=== PATIENT | male | born 1995 | race Caucasian/White ===

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

== ENCOUNTER 2017-07-09 16:16 | Emergency (ER) | payer MEDICAID ==
[2017-07-09 16:22] VITALS: BP 114/88; PULSE 98; RESP 16; TEMP 98.2; O2SAT 97
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
== END 2017-07-09 17:14 | disposition home or self-care (01) ==
DX: S92.144A Nondisplaced dome fracture of right talus, initial encounter for closed fracture (principal); J45.909 Unspecified asthma, uncomplicated; F17.200 Nicotine dependence, unspecified, uncomplicated; X58.XXXA Exposure to other specified factors, initial encounter

== ENCOUNTER 2017-08-25 09:11 | Emergency (ER) | payer MEDICAID ==
[2017-08-25 09:21] VITALS: O2SAT 96
[2017-08-25] MEDS ORDERED: LORazepam 1 MG TAB PO ONE ×3 (10:05→23:41)
[2017-08-25 10:10] LABS: PLATELET COUNT 224 10^3/uL (150-400)
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
[2017-08-25 16:29] VITALS: RESP 16
[2017-08-25 23:46] VITALS: TEMP 98.1
[2017-08-26] MEDS ORDERED: LORazepam 1 MG TAB ONE (00:09)
[2017-08-26 00:28] VITALS: BP 119/68; PULSE 73
== END 2017-08-26 00:27 | disposition home or self-care (01) ==
DX: F20.9 Schizophrenia, unspecified (principal); F17.200 Nicotine dependence, unspecified, uncomplicated
CPT/HCPCS: 80305; G0480

== ENCOUNTER 2018-07-21 10:24 | Emergency (ER) | payer MEDICAID ==
--- NOTE | 2018-07-21 10:47 | EDPHY ---
H & P Stated Complaint: bladder pain/painful urination Time Seen by Provider: 07/21/18 10:47 - Personal History Current Tetanus Diphtheria and Acellular Pertussis (TDAP): Unsure Tetanus Vaccine Date: < 10 years - Medical/Surgical History Hx Asthma: Yes Hx Chronic Respiratory Disease: No Hx Diabetes: No Hx Cardiac Disease: No Hx Renal Disease: No Hx Cirrhosis: No Hx Alcoholism: No Hx HIV/AIDS: No Hx Splenectomy or Spleen Trauma: No Other PMH: ADHD, bipolar, asthma, skizophrenia. L thumb surgery, R knee surgery - Social History Smoking Status: Heavy smoker Constitutional: Initial Vital Signs Temperature (C) 36.7 C 07/21/18 10:38 Heart Rate 104 H 07/21/18 10:38 Respiratory Rate 16 07/21/18 10:38 Blood Pressure 114/72 07/21/18 10:38 O2 Sat (%) 99 07/21/18 10:38 O2 Delivery Mode Room Air Allergies/Adverse Reactions: venom-honey bee [bee venom (honey bee)] Allergy (Verified 07/21/18 10:37) Home Medications: Medication Instructions Recorded Doxycycline Hyclate 100 mg PO BID #20 tablet 07/21/18 Medical Decision Making ED Course/Re-evaluation: CHIEF COMPLAINT: "I'm trying to get my infection out of my bladder" HISTORY OF PRESENT ILLNESS: The patient is a 22 y/o male with a history of bipolar disorder and schizophrenia complaining of dysuria for the last few weeks. He says he tested positive for "an infection," but is unable to provide details on when or how he was tested and what the results were. He treated this infection with cranberry juice and states, "I did the [place] treatment not the doctor treatment." He denies fever, back pain, vomiting, abdominal pain. He denies recent unprotected sex. REVIEW OF SYSTEMS: A comprehensive 10 system review of systems is otherwise negative aside from elements mentioned in the history of present illness and medical decision making. PHYSICAL EXAM: HR, BP, O2 Sat, RR. Temp noted General Appearance: Alert, well hydrated, appropriate, and non-toxic appearing. Head: Atraumatic without scalp tenderness or obvious injury Eyes: Pupils equal, round, reactive to light and accommodation, EOMI, no trauma , no injection. Nose: Atraumatic, no rhinorrhea, clear. Throat: Mucus membranes moist. Neck: Supple, nontender, no lymphadenopathy. Respiratory: No retractions, no distress, no wheezes, and no accessory muscle use. Lungs are clear to auscultation bilaterally. Cardiovascular: Regular rate and rhythm, no murmurs, rubs, or gallops. Good capillary refill all extremities. Gastrointestinal: Abdomen is soft, nontender, non-distended, no masses, no rebound, no guarding, no peritoneal signs. Musculoskeletal: Normal active ROM of all extremities, atraumatic. Neurological: Alert, appropriate, and interactive. The patient has non-focal cranial nerves, motor, sensory, and cerebellar exam. Skin: No rashes, good turgor, no nodules on palpation. Past medical history: ADHD, bipolar, asthma, schizophrenia Past surgical history: L thumb surgery, R knee surgery Family history: Noncontributory Social history: Marijuana use. Lives in [place]. Single. DIFFERENTIAL DIAGNOSIS: The differential diagnosis for the patient's symptoms included but was not limited to infection, medication side effect, neurologic causes, kidney stone, outflow obstruction including prostatic hypertrophy. MEDICAL DECISION MAKING: This is a 22 y/o male who presents with a few-week history of dysuria he has been treating as an infection with cranberry juice. Exam is unremarkable. Suspect infection. Plan for UA with GC/Chlamydia. UA is normal. GC has not resulted yet. Will treat with 250mg IM ceftriaxone here and discharge on 10-day course of doxycycline. Standard STD care and follow up instructions discussed. Return precautions discussed. He is comfortable with this plan. - Data Points Laboratory Results: 07/21/18 07/21/18 Unknown 10:55 Urine Color YELLOW Urine Appearance CLEAR Urine pH 5.0 (5.0-7.5) Ur Specific [place] 1.018 (1.002-1.030) Urine Protein NEGATIVE (NEGATIVE) Urine Ketones NEGATIVE (NEGATIVE) Urine Blood NEGATIVE (NEGATIVE) Urine Nitrate NEGATIVE (NEGATIVE) Urine Bilirubin NEGATIVE (NEGATIVE) Urine Urobilinogen NEGATIVE EU EU (0.2-1.0) Ur Leukocyte Esterase NEGATIVE (NEGATIVE) Urine RBC 1-3 /hpf /hpf (0-3) Urine WBC 1-3 /hpf /hpf (0-3) Ur Epithelial Cells NONE SEEN /lpf /lpf (NONE-1+) Urine Mucus TRACE /lpf /lpf (NONE-1+) Urine Glucose NEGATIVE (NEGATIVE) C.trachomatis RNA (TMA) Pending N.gonorrhoeae RNA (TMA) Pending Departure - Departure Disposition: Home, Routine, Self-Care Clinical Impression: STD (male) Condition: Good Instructions: Sexually Transmitted Diseases (ED) Additional Instructions: 1. Take doxycycline as prescribed. Be sure to complete the entire prescription. 2. Avoid sexual contact until completing prescription to prevent spread of infection to others. Use condoms. 3. Follow up with your primary care provider as directed for unimproved symptoms over the next 2-3 days. 4. Return to the ED for worsening of condition. Referrals: Salas Carrion MD [Primary Care Provider] - As per Instructions Prescriptions: Doxycycline Hyclate 100 mg PO BID #20 tablet Report Scribed for: Neftali Stokes Report Scribed by: Julianne Terry Date of Report: 07/21/18 Time of Report: 10:49
[2018-07-21] MEDS ORDERED: DOXYCYCLINE HYCLATE 100 MG CAP/TAB PO ONE (12:39)
[2018-07-21 13:28] VITALS: BP 110/87
[2018-07-22 12:11] LABS: GC AMPLIFICATION GENPROBE NEGATIVE (NEGATIVE)
== END 2018-07-21 13:29 | disposition home or self-care (01) ==
DX: A64 Unspecified sexually transmitted disease (principal)
CPT/HCPCS: J0696

== ENCOUNTER 2018-08-01 17:38 | Inpatient (IN) | payer MEDICAID, OTHER ==
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
[2018-08-01 18:16] LABS: PLATELET COUNT 274 10^3/uL (150-400)
[2018-08-01] MEDS ORDERED: OLANZapine DISINTEGR 10 MG TAB ONE (21:35)
[2018-08-01] MEDS ORDERED: LORazepam 1 MG TAB ONE (21:36)
--- NOTE | 2018-08-01 21:38 | ASMTTCLDSP ---
[facility] Discharge Disposition Disposition: Answers: Admit Discharge Concerns/Recommendations: Notes: In consultation with [facility] ED physician, Hilary Kendrick MD and on-call psychiatrist, Manolo Holley MD, both concurred that pt appears to meet 27-65 criteria requiring psychiatric hospitalization as pt appears to be at risk of harm to others due to a mental illness condition. Pt was read the Patient Rights and Responsibilities Statement on (08/01/2018:21:00), original placed on chart, and was given photocopy of Rights. Pt declined to sign the Patient Rights. Pt was given the [facility] prohibited belongings list while in the ED. Was patient given the Answers: Yes Inpatient Behavioral Health Prohibited Belongings List while in the ED? For inpatient Manolo Holley MD admission, the following psychiatrist agreed to accept patient for admission to Behavioral Health ([facility]): Date Signed: 08/01/2018 09:38 PM Electronically Signed By:Rowan Juarez
[2018-08-01] MEDS ORDERED: LORazepam 1 MG TAB PO ONE (21:56)
[2018-08-01] MEDS ORDERED: OLANZapine DISINTEGR 10 MG TAB PO ONE (21:57)
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
[2018-08-02] MEDS ORDERED: OLANZapine DISINTEGR 10 MG TAB PO PRN (00:19)
[2018-08-02] MEDS ORDERED: MAG HYDROX/AL HYDROX/SIMETH 30 ML UDCUP PO PRN (00:19)
[2018-08-02] MEDS ORDERED: MAGNESIUM HYDROXIDE 30 ML UDCUP PO PRN (00:19)
[2018-08-02] MEDS ORDERED: ACETAMINOPHEN 325 MG TAB PO PRN (00:19)
[2018-08-02] MEDS ORDERED: LORazepam 0.5 MG TAB PO PRN (00:19)
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
--- NOTE | 2018-08-02 09:48 | PDMN ---
Medical Necessity Medical [place] [facility] [id number] Schizophrenia Spectrum Disorders, Adult: Inpatient Care, 6 days: 22 yo w/ schizophrenia on M1 hold for risk of harm to others. Admit IP status to BEH unit.
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
--- NOTE | 2018-08-02 12:51 | ASMTCMCOM ---
CM Note CM Note Notes: CC met with pt to complete MTP. Pt. denies any current legal issues. Pt. reports drinking "few beers" adding he "tried to cut back", stating "received a calling from God and said not to drink". Pt. reports smoking THC "everyday". Pt. denied all other substance use. Pt. reports being last hospitalized "few months ago" but was not able to remember where. Pt. reports not currently having a job. Pt. reports working with Diana Silva with [facility]. Pt. signed ROIs for P and his mother. Pt. was observed yelling to someone on the phone. Pt. presents as alert, a bit guarded, good eye contact, possibly slightly delusional, and cooperative. Staff report pt. sleeping at least 10 hours and willing to take medications. Date Signed: 08/02/2018 12:50 PM Electronically Signed By:Maria C Minor
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
--- NOTE | 2018-08-02 15:31 | ASMTCMCOM ---
CM Note CM Note Notes: Pt. reports "want to leave" and feeling "cold and tired". Pt. reports sleeping "okay". Pt. reports she "feel fine". Pt. stated she "doesn't like taking it" about her medications. Pt. reports her medication "making me tired". Pt. stated she "went to all" of the groups. Pt. reports no issues while on the unit. Pt. stated her mother could pick her up st discharge. Pt. stated she can make it to her follow up appointments. Pt. asked CC to change the time of her appointment with Cora from 9am to 1pm. Pt. stated she does not want to be on a STC. Pt. denied SI, HI, AVH and paranoia. Pt. presents as alert, calm, guarded, suspicious, good eye contact, unkempt, and cooperative. Staff report pt. sleeping 9 hours and being medication compliant. Per MD CC to move appointment with Dr. Noel to a later date. Date Signed: 08/02/2018 03:30 PM Electronically Signed By:Maria C Minor
--- NOTE | 2018-08-02 15:32 | ASMTCMCOM ---
CM Note CM Note Notes: Please disregard previous treatment note dated 08/02/18 at 15:31, written on wrong patient. Date Signed: 08/02/2018 03:32 PM Electronically Signed By:Maria C Minor
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
[2018-08-03] MEDS: OLANZapine DISINTEGR 10 MG TAB PO PRN (14:18)
[2018-08-03] MEDS: LORazepam 0.5 MG TAB PO PRN ×2 (14:18→21:24)
[2018-08-04] MEDS: OLANZapine DISINTEGR 10 MG TAB PO PRN ×2 (11:28→14:48)
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
[2018-08-04 12:01] LABS: HEPATITIS B CORE AB IGM NEGATIVE (NEGATIVE); HEPATITIS C ANTIBODY TOTAL NEGATIVE (NEGATIVE); HIV TYPE 1 AND 2 NEGATIVE (NEGATIVE)
[2018-08-04] MEDS: LORazepam 1 MG TAB PO PRN (13:27)
--- NOTE | 2018-08-04 13:47 | ASMTCMCOM ---
CM Note CM Note Notes: CC spoke to hospital liaison & MOC Spoke to Susan at [facility] who noted the following regarding Meir Q. Medications: Client was last on 20mg of Zyprexa QHS, Gabapentin 300mg BID as of . Before that visit client was on: Risperdal 1mg & Propranolol 20mg. She noted that client have had at least three prior hospitalizations, one prior suicide attempt with diagnosis with Schizoaffective Disorder, Bipolar Type. Additionally, she noted that client presented as responding to internal stimuli (during last hospitalization) as well as client divulging experiencing auditory hallucinations (nothing specific). Was on suspended probation for having two DUI's during last hospitalization. Presents as having "thought blocking, thought derailment and vacancy at times." Per liaison after two weeks at [facility], client still presented at the time as "disorganized, paranoid and bizarre. " Per conversation with MOC today: Mother noted " [the] state highway police officer that knows him well," would like him to get the mental health treatment that he needs instead of spending that time in the long-term. MOC is unsure, if the Police are going to charge him with a crime or not; MOC will check into this later today. MOC would like client go to residential treatment after his hospital stay or an IOP at the least.* MOC noted, that client has been non compliant with medications in the past, and would like client to be stabilized on medications before the conversation of possibility returning home (starts). Additionally, MOC noted that Zyprexa "might not be the best medication for him because his sister got a 'genetic test completed,' and it suggested Zyprexa was not the best medication for her...they are bother and sister and [I] wonder if the same would apply for him." MOC will be check her schedule and call me back for a possible family meeting on or Friday. Date Signed: 08/04/2018 01:47 PM Electronically Signed By:Chris Blanco
[2018-08-04] MEDS ORDERED: LORazepam 2 MG/ML INJ IM PRN (13:49)
[2018-08-04] MEDS ORDERED: OLANZapine 10 MG/2 ML VIAL IM PRN (13:49)
[2018-08-04] MEDS: OLANZapine DISINTEGR 10 MG TAB PO SCH (20:57)
--- NOTE | 2018-08-05 08:16 | SOAPPROG ---
SOAP Progress Note Assessment/Plan: Assessment: Substance-induced psychosis. R/O Schizophrenia, Schizoaffective Disorder. No improvement noted. (see subjective/objective note). Patient is not safe to discharge at this time as patient continues to exhibit signs of psychosis, and express psychosis symptoms. Patient requires continued inpatient care because of current psychosis, and requires inpatient level of care to stabilize in order to no longer be gravely disabled due to mental illness. Patient exhibits persistent inability to perform essential function due to psychotic condition. Patients support system has inability to manage functional impairment at lower level of care. Patient could benefit from continued inpatient hospitalization for crisis stabilization, safety, and medication evaluation. Plan: 1. Psychotropic medications: After reviewing options, risks, and benefits patient agrees to continue current medications. No medication changes at this time as more time is needed to determine ongoing tolerability and efficacy. Plan is to continue to observe patient for response and side effects from medications, and ongoing monitoring and evaluation. 2. Review with patient informed consent and recommendations for psychotropic medication treatment listed below 3. Labs: no additional labs at this time 4. Therapy: continue milieu and group therapy 5. Further investigation including gathering information from patients relatives and review of past case records to inform treatment plan. 6. Safety/Wellness plan and follow-up outpatient appointments to be established prior to discharge. Next steps are for patient to meet with animal care worker to plan a safe discharge plan and establish outpatient services for ongoing treatment. 7. Confer with inpatient treatment team regarding treatment plan. 8. Psychosocial stressors addressed through 9. Legal status: [facility] 10. Consider discharge next week if patient is in stable condition, safe, and has a safe discharge plan. 11. Substance abuse interventions: hallucinogens and THC PSYCHOTROPIC MEDICATION TREATMENT INFORMED CONSENT and RECOMMENDATIONS: Review nature of condition, diagnosis, and prognosis. Review nature and purpose of psychotropic medication treatment. Review type of psychotropic medications being ordered. Review risk and benefits of psychotropic medication treatment. Review probable length of time patient will need to take medications. Review risk and benefits of not undergoing psychotropic medication treatment. Review alternative treatments to psychotropic medications. Review psychotropic medications contraindications, drug-drug interactions, side effects, and importance of reporting any side effects to a psychiatric provider or nurse during inpatient hospitalization, and upon discharge to patients psychiatric outpatient provider, primary care provider, or other health restorative care technician. Review importance of asking a nurse, psychiatric provider, or primary care provider any questions or problems concerning the psychotropic medications. Verify patient understands the information that has been provided, and understands, accepts, and agrees to psychotropic medications. Review patients safety plan and importance of patient to report to staff while hospitalized if patient is ever a danger to self/others, or unable to care for self, and upon discharge, the importance for patient to contact [facility] or [facility], or go to the nearest emergency room, if patient is ever a danger to self/others, or unable to care for self. Recommend that upon discharge patient establish medication management treatment with a psychiatric provider, establishes routine therapy appointments, and follow-up with primary care provider. Verify patient understands and agrees to these recommendations. 08/05/18 08:16 Subjective: Following up with patient for evaluation of psychosis and safety. Patient reports, "I am doing good, just really, really tired. Tossed and turned a lot last night. [place] like my heart and my whole body was dying. Then I got up and took a shower. Oh, sorry, just noticed a bird fly by. Yes, anyway, doing okay. " Patient describes getting 8 hours of sleep. Patient continues to report plan to return to his parents home in [place], [place] after discharge. Objective: Vital Signs Temp Pulse Resp BP Pulse Ox 36.3 C 67 20 137/85 H 95 08/05/18 06:00 08/05/18 06:00 08/05/18 06:00 08/05/18 06:00 08/05/18 06:00 NURSING REPORT: Consulted with nursing for update on patients progress in treatment. Nurses report patient is not engaged in treatment, is not attending groups, slept 8 hours, expresses the following psychiatric symptoms: severe anxiety, exhibits the following psychiatric symptoms: anxious, disorganized speech and behavior, nonsensical, attending to internal stimuli; is eating all meals; is agreeable to schedule medications and taking as prescribed with no report of side effects, with no s/s of EPS/akathisia, and denies SI/HI, denies A /V hallucinations, and reports delusions. RN REPORT FROM 08/04/18: "Patient was given a warning about raising his voice while talking on the phone to his mother and claiming that his father was a shape shifter. Patient complied by lowering his voice and finished the phone call with no further interventions. Patient did request that this RN report to his mother that he is going to group and taking his medications. Patient was heard talking loudly and crying out in his room while alone. Patient stated while crying, " I am losing myself here. I can't communicate with myself in the same way. " Patient was observed talking with the patient in room 310 about buddhism, philosophy, reality and various other subjects. Much of their conversation was nonsensical and tangential but they did appear to be bonding and understanding one another. Patient took po Zyprexa at bedtime." CARE COORDINATION: Patient currently not allowed to return home to his parents after discharge. Plan for patient to follow-up at [facility] after discharge. MSE: The patient is a well-nourished male looking stated chronological age. Attire is appropriate and dress is casual. Grooming status is appropriate. Ambulation is independent. Gait is normal and coordinated. Posture is normal and relaxed. Eye contact is appropriate. Motor activity is appropriate with purposeful, organized, coordinated movements; with no involuntary movements. Attitude is cooperative. Patient appears distractible and does not relate well to this interviewer. Language production is spontaneous. R/R/V normal. Articulation is clear. Patient reports mood as okay with incongruent and inappropriate expansive affect. Patients thought process is non-linear and illogical, and tangential; patient provides nonsensical responses to interview questions. Patient denies suicidal thoughts, denies homicidal ideation. Patient denies auditory, visual hallucinations. Patient reports delusions. Patient does appear to be attending to internal stimuli. Patients attention and concentration are poor. Patient is oriented to person, place. Patients insight and judgment are poor. SUBSTANCE ABUSE BRIEF INTERVENTION: Brief intervention regarding the risks of hallucinogens and THC abuse is provided to patient with goal to reduce the risk of harm that could result from the continued use of hallucinogens and THC, with the general aim to investigate the problem, raise awareness of problem, develop a solution with the patient, recommend a specific change or activity, and motivate the patient toward change. Assess substance abuse behavior and give supportive advice about harm reduction, recommend a reduction in hazardous/at- risk consumption patterns, and facilitate referrals for additional specialized treatment with acute care surgeon. Intermediate goal is for the patient to quit and attend outpatient substance abuse treatment. Intervention focus on intermediate goals to allow for more immediate success in the treatment process to keep the patient motivated. Review following with patient: Cannabis use risks: Short-term use: impaired short-term memory, impaired motor coordination, altered judgement, in high doses paranoia and psychosis. Long-term use addiction, diminished life satisfaction and achievement, symptoms of chronic bronchitis, and increased risk of chronic psychosis disorders if predisposition to such disorders. In withdrawal anger, aggression irritability, anxiety and nervousness, decreased appetite or weight loss, restlessness, and sleep difficulties with strange dreams. Hallucinogen use risks: paranoia, psychosis, speech problems, memory loss, weight loss, anxiety, and depression and suicidal thoughts. OUTPATIENT SUBSTANCE ABUSE TREATMENT: Patient referred to outpatient provider and treatment for continued treatment related to substance abuse. - Time Spent With Patient Time Spent With Patient: 15 minutes, met with patient individually. - Pending Discharge Pending Discharge Within 24 Hours: No Pending Discharge Within 48 Hours: No ICD10 Worksheet Patient Problems: Problems Problem Status Onset Cannabis use disorder, severe, dependence Acute Hallucinogen use, unspecified with hallucinogen-induced psychotic disorder, unspecified Acute Noncompliance with medication regimen Acute Schizophrenia Acute
[2018-08-05] MEDS: LORazepam 1 MG TAB PO PRN ×2 (10:53→21:27)
[2018-08-05] MEDS ORDERED: LORazepam 2 MG/ML INJ IM PRN (15:40)
[2018-08-05] MEDS ORDERED: OLANZapine 10 MG/2 ML VIAL IM PRN (15:40)
[2018-08-05] MEDS: OLANZapine DISINTEGR 10 MG TAB PO SCH (21:23)
[2018-08-06 06:42] LABS: GC AMPLIFICATION GENPROBE NEGATIVE (NEGATIVE)
--- NOTE | 2018-08-06 07:04 | SOAPPROG ---
SOAP Progress Note Assessment/Plan: Assessment: Schizoaffective Disorder, Bipolar Type. Cannabis Use Disorder, Severe. Hallucinogen Use Disorder. Substance-Induced Psychosis. No improvement noted. (see subjective/objective note). Patient is not safe to discharge at this time as patient continues to exhibit signs of psychosis, and express psychosis symptoms. Patient requires continued inpatient care because of current psychosis, and requires inpatient level of care to stabilize in order to no longer be gravely disabled due to mental illness. Patient exhibits persistent inability to perform essential function due to psychotic condition. Patient is unable to test reality, appropriately attend to his ADLs, and unable to communicate his basic needs. Patients support system has inability to manage functional impairment at lower level of care. Patient could benefit from continued inpatient hospitalization for crisis stabilization, safety, and medication evaluation. Plan: 1. Psychotropic medications: After reviewing options, risks, and benefits patient agrees to continue current medications. No medication changes at this time as more time is needed to determine ongoing tolerability and efficacy. Plan is to continue to observe patient for response and side effects from medications, and ongoing monitoring and evaluation. 2. Review with patient informed consent and recommendations for psychotropic medication treatment listed below 3. Labs: no additional labs at this time 4. Therapy: continue milieu and group therapy 5. Further investigation including gathering information from patients relatives and review of past case records to inform treatment plan. 6. Safety/Wellness plan and follow-up outpatient appointments to be established prior to discharge. Next steps are for patient to meet with career representative to plan a safe discharge plan and establish outpatient services for ongoing treatment. 7. Confer with inpatient treatment team regarding treatment plan. 8. Psychosocial stressors addressed through 9. Legal status: [facility] 10. Consider discharge next week if patient is in stable condition, safe, and has a safe discharge plan. 11. Substance abuse interventions: hallucinogens and THC PSYCHOTROPIC MEDICATION TREATMENT INFORMED CONSENT and RECOMMENDATIONS: Review nature of condition, diagnosis, and prognosis. Review nature and purpose of psychotropic medication treatment. Review type of psychotropic medications being ordered. Review risk and benefits of psychotropic medication treatment. Review probable length of time patient will need to take medications. Review risk and benefits of not undergoing psychotropic medication treatment. Review alternative treatments to psychotropic medications. Review psychotropic medications contraindications, drug-drug interactions, side effects, and importance of reporting any side effects to a psychiatric provider or nurse during inpatient hospitalization, and upon discharge to patients psychiatric outpatient provider, primary care provider, or other health neonatal intensive care unit nurse. Review importance of asking a nurse, psychiatric provider, or primary care provider any questions or problems concerning the psychotropic medications. Verify patient understands the information that has been provided, and understands, accepts, and agrees to psychotropic medications. Review patients safety plan and importance of patient to report to staff while hospitalized if patient is ever a danger to self/others, or unable to care for self, and upon discharge, the importance for patient to contact [facility] or [facility], or go to the nearest emergency room, if patient is ever a danger to self/others, or unable to care for self. Recommend that upon discharge patient establish medication management treatment with a psychiatric provider, establishes routine therapy appointments, and follow-up with primary care provider. Verify patient understands and agrees to these recommendations. 08/06/18 07:04 Subjective: Following up with patient for evaluation of psychosis and safety. Patient reports, "I feel better, the medication is working. Would like to speak to someone today about my discharge." Patient reports feeling safe here. Patient describes getting 8 hours of sleep. Patient continues to report plan to return to his parents home in [place], [place] after discharge. Patient reports no side effects from current medications, and agrees to continue current medications. Objective: Vital Signs Temp Pulse Resp BP Pulse Ox 36.3 C 89 16 143/87 H 96 08/05/18 06:00 08/06/18 06:00 08/06/18 06:00 08/06/18 06:00 08/06/18 06:00 NURSING REPORT: Consulted with nursing for update on patients progress in treatment. Nurses report patient is not engaged in treatment, is not attending groups, slept 8 hours, expresses the following psychiatric symptoms: severe anxiety, exhibits the following psychiatric symptoms: anxious, irritable/ agitated, disorganized speech and behavior, nonsensical; is eating all meals; is agreeable to schedule medications and taking as prescribed with no report of side effects, with no s/s of EPS/akathisia, and denies SI/HI, denies A/V hallucinations, and reports delusions. RN REPORT FROM 08/05/18: Patient took Zyprexa zydis and Ativan 1mg with thorough mouth check. He stated that the Zyprexa made him "wake up and feel like there were tiny sharp knives stabbing every pressure point in my body" usually around 0200. Patient asked whether or not Ativan would be available to him. RN assured him it was available every 4 hours. This day shift, patient requested an Ativan from RN Sessions, and proceeded to throw it under the chair after trying to cheek it. Patient was very dramatic and silly at various points tonight on the milieu, jumping, dancing around. He was "whacking" his socks on his the heating vent, very loudly. Patient apologized for being loud. CARE COORDINATION: Patient currently not allowed to return home to his parents after discharge. Plan for patient to follow-up at [facility] after discharge. BEHAVIORAL PLAN: Treatment team consensus to continue current plan to support precautions due to patients current acute psychosis. Will confer with treatment team this morning during treatment team meeting to assess need to continue this plan. FAMILY MEETING/UPDATE: This BUYER TOBACCO HEAD spoke to patients mother (EMILY in chart) yesterday to provide patients mother with treatment update and gather collateral from patients mother. Patients mother reported, "He thinks he is Thor and his dad is , and describes his dad as not really his dad, but a shape-shifter." Patients mother responded well to update and thanked this BUYER TOBACCO HEAD for the call. MSE: The patient is a well-nourished male looking stated chronological age. Attire is appropriate and dress is casual. Grooming status is appropriate. Ambulation is independent. Gait is normal and coordinated. Posture is normal and relaxed. Eye contact is appropriate. Motor activity is appropriate with purposeful, organized, coordinated movements; with no involuntary movements. Attitude is cooperative. Patient appears distractible and does not relate well to this interviewer. Language production is spontaneous. R/R/V normal. Articulation is clear. Patient reports mood as okay with incongruent and inappropriate expansive affect. Patients thought process is non-linear and illogical, and tangential; patient provides non-sensical and delusional responses to interview questions. Patient denies suicidal thoughts, denies homicidal ideation. Patient denies auditory, visual hallucinations. Patient reports delusions. Patient does not appear to be attending to internal stimuli. Patients attention and concentration are poor. Patient is oriented to person, place. Patients insight and judgment are poor. SUBSTANCE ABUSE BRIEF INTERVENTION: Brief intervention regarding the risks of hallucinogens and THC abuse is provided to patient with goal to reduce the risk of harm that could result from the continued use of hallucinogens and THC, with the general aim to investigate the problem, raise awareness of problem, develop a solution with the patient, recommend a specific change or activity, and motivate the patient toward change. Assess substance abuse behavior and give supportive advice about harm reduction, recommend a reduction in hazardous/at- risk consumption patterns, and facilitate referrals for additional specialized treatment with rn coronary care unit. Intermediate goal is for the patient to quit and attend outpatient substance abuse treatment. Intervention focus on intermediate goals to allow for more immediate success in the treatment process to keep the patient motivated. Review following with patient: Cannabis use risks: Short-term use: impaired short-term memory, impaired motor coordination, altered judgement, in high doses paranoia and psychosis. Long-term use addiction, diminished life satisfaction and achievement, symptoms of chronic bronchitis, and increased risk of chronic psychosis disorders if predisposition to such disorders. In withdrawal anger, aggression irritability, anxiety and nervousness, decreased appetite or weight loss, restlessness, and sleep difficulties with strange dreams. Hallucinogen use risks: paranoia, psychosis, speech problems, memory loss, weight loss, anxiety, and depression and suicidal thoughts. OUTPATIENT SUBSTANCE ABUSE TREATMENT: Patient referred to outpatient provider and treatment for continued treatment related to substance abuse. - Time Spent With Patient Time Spent With Patient: 15 minutes, met with patient individually. - Pending Discharge Pending Discharge Within 24 Hours: No Pending Discharge Within 48 Hours: No ICD10 Worksheet Patient Problems: Problems Problem Status Onset Cannabis use disorder, severe, dependence Acute Hallucinogen use, unspecified with hallucinogen-induced psychotic disorder, unspecified Acute Noncompliance with medication regimen Acute Unspecified psychosis Acute
[2018-08-06] MEDS: LORazepam 1 MG TAB PO PRN ×2 (13:25→23:14)
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
[2018-08-06] MEDS: OLANZapine DISINTEGR 10 MG TAB PO SCH (21:10)
--- NOTE | 2018-08-07 08:37 | SOAPPROG ---
SOAP Progress Note Assessment/Plan: Assessment: Schizoaffective Disorder, Bipolar Type. Cannabis Use Disorder, Severe. Hallucinogen Use Disorder. Substance-Induced Psychosis. No improvement noted. (see subjective/objective note). Patient is not safe to discharge at this time as patient continues to exhibit signs of psychosis, and express psychosis symptoms. Patient requires continued inpatient care because of current psychosis, and requires inpatient level of care to stabilize in order to no longer be gravely disabled due to mental illness. Patient exhibits persistent inability to perform essential function due to psychotic condition. Patient is unable to test reality, appropriately attend to his ADLs, and unable to communicate his basic needs. Patients support system has inability to manage functional impairment at lower level of care. Patient could benefit from continued inpatient hospitalization for crisis stabilization, safety, and medication evaluation. Plan: 1. Psychotropic medications: After reviewing options, risks, and benefits patient agrees to continue current medications. No medication changes at this time as more time is needed to determine ongoing tolerability and efficacy. Plan is to continue to observe patient for response and side effects from medications, and ongoing monitoring and evaluation. 2. Review with patient informed consent and recommendations for psychotropic medication treatment listed below 3. Labs: no additional labs at this time 4. Therapy: continue milieu and group therapy 5. Further investigation including gathering information from patients relatives and review of past case records to inform treatment plan. 6. Safety/Wellness plan and follow-up outpatient appointments to be established prior to discharge. Next steps are for patient to meet with care asst to plan a safe discharge plan and establish outpatient services for ongoing treatment. 7. Confer with inpatient treatment team regarding treatment plan. 8. Psychosocial stressors addressed through 9. Legal status: [facility] 10. Consider discharge next week if patient is in stable condition, safe, and has a safe discharge plan. 11. Substance abuse interventions: hallucinogens and THC PSYCHOTROPIC MEDICATION TREATMENT INFORMED CONSENT and RECOMMENDATIONS: Review nature of condition, diagnosis, and prognosis. Review nature and purpose of psychotropic medication treatment. Review type of psychotropic medications being ordered. Review risk and benefits of psychotropic medication treatment. Review probable length of time patient will need to take medications. Review risk and benefits of not undergoing psychotropic medication treatment. Review alternative treatments to psychotropic medications. Review psychotropic medications contraindications, drug-drug interactions, side effects, and importance of reporting any side effects to a psychiatric provider or nurse during inpatient hospitalization, and upon discharge to patients psychiatric outpatient provider, primary care provider, or other health care process manager. Review importance of asking a nurse, psychiatric provider, or primary care provider any questions or problems concerning the psychotropic medications. Verify patient understands the information that has been provided, and understands, accepts, and agrees to psychotropic medications. Review patients safety plan and importance of patient to report to staff while hospitalized if patient is ever a danger to self/others, or unable to care for self, and upon discharge, the importance for patient to contact [facility] or [facility], or go to the nearest emergency room, if patient is ever a danger to self/others, or unable to care for self. Recommend that upon discharge patient establish medication management treatment with a psychiatric provider, establishes routine therapy appointments, and follow-up with primary care provider. Verify patient understands and agrees to these recommendations. 08/07/18 08:37 Subjective: Following up with patient for evaluation of psychosis and safety. Patient reports, "I took medications last night, good sleep last night." Patient describes getting 8 hours of sleep. Patient reports no side effects from current medications, and agrees to continue current medications. Patient reports plan to stay with one of his friends house after discharge. This RAILROAD YARD WORKER asks patient about report from staff he walked out of his room naked yesterday afternoon patient reports, "Oh, I was just walking out to get a towel." Patient reports he will no longer will leave his room naked and appropriately ask staff for a towel. Objective: Vital Signs Temp Pulse Resp BP Pulse Ox 36.3 C 58 L 16 117/84 H 99 08/07/18 06:00 08/07/18 06:00 08/07/18 06:00 08/07/18 06:00 08/07/18 06:00 NURSING REPORT: Consulted with nursing for update on patients progress in treatment. Nurses report patient is not engaged in treatment, is not attending groups, slept 8 hours, expresses the following psychiatric symptoms: severe anxiety, exhibits the following psychiatric symptoms: anxious, irritable/ agitated, disorganized speech and behavior, nonsensical; is eating all meals; is agreeable to schedule medications and taking as prescribed with no report of side effects, with no s/s of EPS/akathisia, and denies SI/HI, denies A/V hallucinations, and reports delusions. CARE COORDINATION: Patient currently not allowed to return home to his parents after discharge. Plan for patient to follow-up at [facility] after discharge. BEHAVIORAL PLAN: Treatment team consensus to continue current plan to support precautions due to patients current acute psychosis. See update/edit from progress note, patient walked out of his room naked. Will confer with treatment team this morning during treatment team meeting to assess need to continue this plan. MSE: The patient is a well-nourished male looking stated chronological age. Attire is appropriate and dress is casual. Grooming status is appropriate. Ambulation is independent. Gait is normal and coordinated. Posture is normal and relaxed. Eye contact is appropriate. Motor activity is appropriate with purposeful, organized, coordinated movements; with no involuntary movements. Attitude is cooperative. Patient appears distractible and does not relate well to this interviewer. Language production is spontaneous. R/R/V normal. Articulation is clear. Patient reports mood as okay with incongruent and inappropriate expansive affect. Patients thought process is non-linear and illogical, and tangential; patient provides non-sensical and delusional responses to interview questions. Patient denies suicidal thoughts, denies homicidal ideation. Patient denies auditory, visual hallucinations. Patient reports delusions. Patient does not appear to be attending to internal stimuli. Patients attention and concentration are poor. Patient is oriented to person, place. Patients insight and judgment are poor. SUBSTANCE ABUSE BRIEF INTERVENTION: Brief intervention regarding the risks of hallucinogens and THC abuse is provided to patient with goal to reduce the risk of harm that could result from the continued use of hallucinogens and THC, with the general aim to investigate the problem, raise awareness of problem, develop a solution with the patient, recommend a specific change or activity, and motivate the patient toward change. Assess substance abuse behavior and give supportive advice about harm reduction, recommend a reduction in hazardous/at- risk consumption patterns, and facilitate referrals for additional specialized treatment with direct care counselor. Intermediate goal is for the patient to quit and attend outpatient substance abuse treatment. Intervention focus on intermediate goals to allow for more immediate success in the treatment process to keep the patient motivated. Review following with patient: Cannabis use risks: Short-term use: impaired short-term memory, impaired motor coordination, altered judgement, in high doses paranoia and psychosis. Long-term use addiction, diminished life satisfaction and achievement, symptoms of chronic bronchitis, and increased risk of chronic psychosis disorders if predisposition to such disorders. In withdrawal anger, aggression irritability, anxiety and nervousness, decreased appetite or weight loss, restlessness, and sleep difficulties with strange dreams. Hallucinogen use risks: paranoia, psychosis, speech problems, memory loss, weight loss, anxiety, and depression and suicidal thoughts. OUTPATIENT SUBSTANCE ABUSE TREATMENT: Patient referred to outpatient provider and treatment for continued treatment related to substance abuse. - Time Spent With Patient Time Spent With Patient: 15 minutes, met with patient individually. - Pending Discharge Pending Discharge Within 24 Hours: No Pending Discharge Within 48 Hours: No ICD10 Worksheet Patient Problems: Problems Problem Status Onset Cannabis use disorder, severe, dependence Acute Hallucinogen use, unspecified with hallucinogen-induced psychotic disorder, unspecified Acute Schizoaffective disorder, bipolar type Chronic
[2018-08-07] MEDS: LORazepam 1 MG TAB PO PRN ×2 (11:24→20:30)
--- NOTE | 2018-08-07 14:19 | ASMTCMCOM ---
CM Note CM Note Notes: Pt. reports "doing great". Pt. reports just finishing a meeting with his insulator tester. Pt. reports he "tossed and turned" and reports "never feel rested" adding he normally sleeps between 6-8 hours. Pr. reports "been getting a lot to eat" and is attending groups. Pt. reports he never feels full. Pt. reports "they help me a lot" about his medications. Pt. reports ativan helps with the side effects of the Zyprexa. Pt. reports his medications doing "wonders". Pt. struggled to remember he had a meeting with PNP today. Pt. reports he will be discharging on Friday "possibly". Pt. denied SI, HI, AVH and paranoia. Pt. presents as alert, calm, friendly, good eye contact, and cooperative. Staff report pt. sleeping 6.5 hours and being medication compliant. Staff report pt. coming out of his room naked last evening, but was redirectable. CC to continue working of pt's housing plans upon discharge. Date Signed: 08/07/2018 02:18 PM Electronically Signed By:Maria C Minor
[2018-08-07] MEDS: OLANZapine DISINTEGR 10 MG TAB PO SCH (20:14)
--- NOTE | 2018-08-08 15:20 | ASMTCMCOM ---
CM Note CM Note Notes: Pt. reports "could be doing better, could be doing worse" adding he is feeling "neutral". Pt. reports he slept "amazingly, really good sleep" adding he possibly slept better due to being "more relaxed" before bed. Pt. reports wanting to ask the MD about getting double portions with his meals. Pt. stated sometimes the Zyprexa wakes him up at night, due to pain in "pressure points" on his back. Pt. reports "Zyprexa really helps with hallucinations". Pt. stated not liking when the TV "is crackly" and there are "color lines through one channel". CC asked about pt's substance use, pt. asked if our discussion with stay in the hospital. Pt. stated he plans to move to [place] where shrooms are legal. Pt. denied SI, HI, AVH and paranoia. Pt. presents as alert, calm, fair eye contact, somewhat groomed, a bit guarded and cooperative. Staff report pt. sleeping 9 hours and being medication compliant. CC to reach out to [facility] to secure a follow up appointment with a prescriber. Pt. has an appointment with Diana Silva on3.29 at 10am. Date Signed: 08/08/2018 03:18 PM Electronically Signed By:Maria C Minor
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
[2018-08-08] MEDS: OLANZapine DISINTEGR 10 MG TAB PO SCH (21:50)
[2018-08-08] MEDS: LORazepam 1 MG TAB PO PRN (21:53)
[2018-08-09] MEDS: OLANZapine DISINTEGR 10 MG TAB PO PRN (12:41)
[2018-08-09] MEDS: LORazepam 1 MG TAB PO PRN ×2 (12:41→21:06)
[2018-08-09] MEDS: NICOTINE POLACRILEX 2 MG GUM B PRN (13:33)
--- NOTE | 2018-08-09 16:11 | ASMTCMCOM ---
CM Note CM Note Notes: Pt. reports "need some fresh air, I'm dying". Pt. stated he is "having schizophrenic thoughts". Pt. stated he is keeping busy by reading a book on shadow puppets, watching TV and "playing brain games with my mind". Pt. reports feeling "very aggravated, very, very aggravated". Pt. stated "I'm a being of nature". Pt. stated "this hospital environment is not helping with my schizophrenia", adding his "ADHD bounces off my schizophrenia". Pt. reports sleeping "okay, pretty good sleep". Pt. reports his medications are "helping" and he is having "no side effects". Pt. stated his meals were double, adding he "feel closer to being full". Pt. reports attending groups. Pt. stated he is "worried about my discharge" adding he believes he will discharge on Friday. Pt. stated he is "worried about not being able to get out of here". Pt. stated he plans to return to [place], and will live with his parents, or his friend Tayo, or his friend Santana in [place]. Pt. stated he is able to get to his follow up appointments in [place], adding he has an eco pass. Pt. stated he is able to fill and take his medications as prescribed. Pt. denied SI, HI, AVH and paranoia. Pt. requested AG. Pt. presents as alert, fidgety intermittent eye contact, lacking insight, rambling, and somewhat cooperative. Staff report pt. sleeping 6 hours and being medication compliant. Pt. was placed on a restriction of rights of 10 feet from all females, allowed only in the [facility], and must meet with visitors in common areas. Upon being informed of this restriction, pt. began slamming doors and refused to accept the restriction. CC to reach out to [facility] about potential housing options for pt. CC to reach out to [facility] for an appointment with a prescriber. Date Signed: 08/09/2018 04:10 PM Electronically Signed By:Maria C Minor
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
[2018-08-09] MEDS: OLANZapine DISINTEGR 10 MG TAB PO SCH (21:06)
--- NOTE | 2018-08-10 06:45 | SOAPPROG ---
SOAP Progress Note Assessment/Plan: Assessment: Schizoaffective Disorder, Bipolar Type. Cannabis Use Disorder, Severe. Hallucinogen Use Disorder. No improvement noted. (see subjective/objective note ). Patient is not safe to discharge at this time as patient continues to exhibit signs of psychosis, and express psychosis symptoms. Patient requires continued inpatient care because of current psychosis, and requires inpatient level of care to stabilize in order to no longer be gravely disabled due to mental illness. Patient exhibits persistent inability to perform essential function due to psychotic condition. Patient is unable to test reality, appropriately attend to his ADLs, and unable to communicate his basic needs. Patients support system has inability to manage functional impairment at lower level of care. Patient requires close monitoring (assault precautions, suicide precautions). Behavioral plan in place to support precautions. Patient could benefit from continued inpatient hospitalization for crisis stabilization, safety, and medication evaluation. Plan: 1. Psychotropic medications: After reviewing options, risks, and benefits patient agrees to continue current medications, and agrees to increase Zyprexa Zydis to 15 mg po QHS. No other medication changes at this time as more time is needed to determine ongoing tolerability and efficacy. Plan is to continue to observe patient for response and side effects from medications, and ongoing monitoring and evaluation. 2. Review with patient informed consent and recommendations for psychotropic medication treatment listed below 3. Labs: no additional labs at this time 4. Therapy: continue milieu and group therapy 5. Further investigation including gathering information from patients relatives and review of past case records to inform treatment plan. 6. Safety/Wellness plan and follow-up outpatient appointments to be established prior to discharge. Next steps are for patient to meet with career technical counselor to plan a safe discharge plan and establish outpatient services for ongoing treatment. 7. Confer with inpatient treatment team regarding treatment plan. 8. Psychosocial stressors addressed through 9. Legal status: [facility] 10. Consider discharge next week if patient is in stable condition, safe, and has a safe discharge plan. 11. Substance abuse interventions: hallucinogens and THC 12. Continue behavioral plan to support ISB precautions. PSYCHOTROPIC MEDICATION TREATMENT INFORMED CONSENT and RECOMMENDATIONS: Review nature of condition, diagnosis, and prognosis. Review nature and purpose of psychotropic medication treatment. Review type of psychotropic medications being ordered. Review risk and benefits of psychotropic medication treatment. Review probable length of time patient will need to take medications. Review risk and benefits of not undergoing psychotropic medication treatment. Review alternative treatments to psychotropic medications. Review psychotropic medications contraindications, drug-drug interactions, side effects, and importance of reporting any side effects to a psychiatric provider or nurse during inpatient hospitalization, and upon discharge to patients psychiatric outpatient provider, primary care provider, or other health hiv/aids care nurse. Review importance of asking a nurse, psychiatric provider, or primary care provider any questions or problems concerning the psychotropic medications. Verify patient understands the information that has been provided, and understands, accepts, and agrees to psychotropic medications. Review patients safety plan and importance of patient to report to staff while hospitalized if patient is ever a danger to self/others, or unable to care for self, and upon discharge, the importance for patient to contact [facility] or [facility], or go to the nearest emergency room, if patient is ever a danger to self/others, or unable to care for self. Recommend that upon discharge patient establish medication management treatment with a psychiatric provider, establishes routine therapy appointments, and follow-up with primary care provider. Verify patient understands and agrees to these recommendations. 08/10/18 06:40 Subjective: Following up with patient for evaluation of psychosis and safety. Patient reports, "Going well. Weekend was good." Patient describes getting 8 hours of sleep. Patient reports no side effects from current medications, and agrees to continue current medications. Patient agrees to increase Zyprexa Zydis to 15 mg po QHS. Patient reports having no issues over the weekend with staff or other patients. Objective: Vital Signs Temp Pulse Resp BP Pulse Ox 36.7 C 78 16 113/83 H 95 08/09/18 06:00 08/09/18 06:00 08/09/18 06:00 08/09/18 06:00 08/09/18 06:00 NURSING REPORT: Consulted with nursing for update on patients progress in treatment. Nurses report patient is not engaged in treatment, is not attending groups, slept 8 hours, expresses the following psychiatric symptoms: severe anxiety, exhibits the following psychiatric symptoms: anxious, irritable/ agitated, disorganized speech and behavior, nonsensical; is eating all meals; is agreeable to schedule medications and taking as prescribed with no report of side effects, with no s/s of EPS/akathisia, and denies SI/HI, denies A/V hallucinations, and reports delusions. MD REPORT FROM WEEKEND: Placed on new ISB restrictions on Friday d/t inappropriate behavior with patient. Patient had meltdown on Friday b/c I wouldnt give him AG privileges. MSE: The patient is a well-nourished male looking stated chronological age. Attire is appropriate and dress is casual. Grooming status is appropriate. Ambulation is independent. Gait is normal and coordinated. Posture is normal and relaxed. Eye contact is appropriate. Motor activity is appropriate with purposeful, organized, coordinated movements; with no involuntary movements. Attitude is cooperative. Patient appears distractible and does not relate well to this interviewer. Language production is spontaneous. R/R/V normal. Articulation is clear. Patient reports mood as okay with incongruent and inappropriate expansive affect. Patients thought process is non-linear and illogical, and tangential; patient provides non-sensical and delusional responses to interview questions. Patient denies suicidal thoughts, denies homicidal ideation. Patient denies auditory, visual hallucinations. Patient reports delusions. Patient does not appear to be attending to internal stimuli. Patients attention and concentration are poor. Patient is oriented to person, place. Patients insight and judgment are poor. SUBSTANCE ABUSE BRIEF INTERVENTION: Brief intervention regarding the risks of hallucinogens and THC abuse is provided to patient with goal to reduce the risk of harm that could result from the continued use of hallucinogens and THC, with the general aim to investigate the problem, raise awareness of problem, develop a solution with the patient, recommend a specific change or activity, and motivate the patient toward change. Assess substance abuse behavior and give supportive advice about harm reduction, recommend a reduction in hazardous/at- risk consumption patterns, and facilitate referrals for additional specialized treatment with home day care provider. Intermediate goal is for the patient to quit and attend outpatient substance abuse treatment. Intervention focus on intermediate goals to allow for more immediate success in the treatment process to keep the patient motivated. Review following with patient: Cannabis use risks: Short-term use: impaired short-term memory, impaired motor coordination, altered judgement, in high doses paranoia and psychosis. Long-term use addiction, diminished life satisfaction and achievement, symptoms of chronic bronchitis, and increased risk of chronic psychosis disorders if predisposition to such disorders. In withdrawal anger, aggression irritability, anxiety and nervousness, decreased appetite or weight loss, restlessness, and sleep difficulties with strange dreams. Hallucinogen use risks: paranoia, psychosis, speech problems, memory loss, weight loss, anxiety, and depression and suicidal thoughts. OUTPATIENT SUBSTANCE ABUSE TREATMENT: Patient referred to outpatient provider and treatment for continued treatment related to substance abuse. - Time Spent With Patient Time Spent With Patient: 15 minutes, met with patient individually. - Pending Discharge Pending Discharge Within 24 Hours: No Pending Discharge Within 48 Hours: No ICD10 Worksheet Patient Problems: Problems Problem Status Onset Cannabis use disorder, severe, dependence Acute Hallucinogen use, unspecified with hallucinogen-induced psychotic disorder, unspecified Acute Schizoaffective disorder, bipolar type Chronic
--- NOTE | 2018-08-10 12:07 | ASMTCMCOM ---
CM Note CM Note Notes: Client was present on the unit through out the day. Client presents as un-kept, disorganized affect tangential. Client participated in some groups while suggesting he "had a good nights sleep." Client will need to complete a family meeting soon with MOC. CC will out-reach MOC to see when the best time to meet would be this week. * Date Signed: 08/10/2018 12:06 PM Electronically Signed By:Chris Blanco
[2018-08-10] MEDS: OLANZapine DISINTEGR 10 MG TAB PO SCH (20:55)
[2018-08-11] MEDS: LORazepam 1 MG TAB PO PRN (00:48)
--- NOTE | 2018-08-11 07:45 | SOAPPROG ---
SOAP Progress Note Assessment/Plan: Assessment: Schizoaffective Disorder, Bipolar Type. Cannabis Use Disorder, Severe. Hallucinogen Use Disorder. No improvement noted. (see subjective/objective note ). Patient is not safe to discharge at this time as patient continues to exhibit signs of psychosis, and express psychosis symptoms. Patient requires continued inpatient care because of current psychosis, and requires inpatient level of care to stabilize in order to no longer be gravely disabled due to mental illness. Patient exhibits persistent inability to perform essential function due to psychotic condition. Patients support system has inability to manage functional impairment at lower level of care. Patient requires close monitoring (assault precautions, suicide precautions). Behavioral plan in place to support precautions. Patient could benefit from continued inpatient hospitalization for crisis stabilization, safety, and medication evaluation. Plan: 1. Psychotropic medications: After reviewing options, risks, and benefits patient agrees to continue current medications. No other medication changes at this time as more time is needed to determine ongoing tolerability and efficacy. Plan is to continue to observe patient for response and side effects from medications, and ongoing monitoring and evaluation. 2. Review with patient informed consent and recommendations for psychotropic medication treatment listed below 3. Labs: no additional labs at this time 4. Therapy: continue milieu and group therapy 5. Further investigation including gathering information from patients relatives and review of past case records to inform treatment plan. 6. Safety/Wellness plan and follow-up outpatient appointments to be established prior to discharge. Next steps are for patient to meet with home care provider to plan a safe discharge plan and establish outpatient services for ongoing treatment. 7. Confer with inpatient treatment team regarding treatment plan. 8. Psychosocial stressors addressed through 9. Legal status: [facility] 10. Consider discharge next week if patient is in stable condition, safe, and has a safe discharge plan. 11. Substance abuse interventions: hallucinogens and THC PSYCHOTROPIC MEDICATION TREATMENT INFORMED CONSENT and RECOMMENDATIONS: Review nature of condition, diagnosis, and prognosis. Review nature and purpose of psychotropic medication treatment. Review type of psychotropic medications being ordered. Review risk and benefits of psychotropic medication treatment. Review probable length of time patient will need to take medications. Review risk and benefits of not undergoing psychotropic medication treatment. Review alternative treatments to psychotropic medications. Review psychotropic medications contraindications, drug-drug interactions, side effects, and importance of reporting any side effects to a psychiatric provider or nurse during inpatient hospitalization, and upon discharge to patients psychiatric outpatient provider, primary care provider, or other health career professional. Review importance of asking a nurse, psychiatric provider, or primary care provider any questions or problems concerning the psychotropic medications. Verify patient understands the information that has been provided, and understands, accepts, and agrees to psychotropic medications. Review patients safety plan and importance of patient to report to staff while hospitalized if patient is ever a danger to self/others, or unable to care for self, and upon discharge, the importance for patient to contact [facility] or [facility], or go to the nearest emergency room, if patient is ever a danger to self/others, or unable to care for self. Recommend that upon discharge patient establish medication management treatment with a psychiatric provider, establishes routine therapy appointments, and follow-up with primary care provider. Verify patient understands and agrees to these recommendations. 08/11/18 07:44 Subjective: Following up with patient for evaluation of psychosis and safety. Patient reports, "Going well. Would like to discuss a discharge plan." Patient describes getting 8 hours of sleep. Patient reports no side effects from current medications, and agrees to continue current medications. Patient agrees to contact his parents to set-up a family meeting. Objective: Vital Signs Temp Pulse Resp BP Pulse Ox 36.3 C 98 16 136/77 H 94 08/10/18 06:00 08/11/18 06:00 08/11/18 06:00 08/11/18 06:00 08/11/18 06:00 NURSING REPORT: Consulted with nursing for update on patients progress in treatment. Nurses report patient is not engaged in treatment, is not attending groups, slept 8 hours, expresses the following psychiatric symptoms: moderate anxiety, exhibits the following psychiatric symptoms: anxious; is eating all meals; is agreeable to schedule medications and taking as prescribed with no report of side effects, with no s/s of EPS/akathisia, and denies SI/HI, denies A /V hallucinations, and reports delusions. MD REPORT FROM WEEKEND: Placed on new ISB restrictions on Friday d/t inappropriate behavior with patient. Patient had meltdown on Friday b/c I wouldnt give him AG privileges. MSE: The patient is a well-nourished male looking stated chronological age. Attire is appropriate and dress is casual. Grooming status is appropriate. Ambulation is independent. Gait is normal and coordinated. Posture is normal and relaxed. Eye contact is appropriate. Motor activity is appropriate with purposeful, organized, coordinated movements; with no involuntary movements. Attitude is cooperative. Patient appears distractible and does not relate well to this interviewer. Language production is spontaneous. R/R/V normal. Articulation is clear. Patient reports mood as okay with congruent and appropriate affect. Patients thought process is fairly linear and logical. Thought process improved since starting antipsychotic. Patient denies suicidal thoughts, denies homicidal ideation. Patient denies auditory, visual hallucinations. Patient reports delusions. Patient does not appear to be attending to internal stimuli. Patients attention and concentration are poor. Patient is oriented to person, place. Patients insight and judgment are poor. SUBSTANCE ABUSE BRIEF INTERVENTION: Brief intervention regarding the risks of hallucinogens and THC abuse is provided to patient with goal to reduce the risk of harm that could result from the continued use of hallucinogens and THC, with the general aim to investigate the problem, raise awareness of problem, develop a solution with the patient, recommend a specific change or activity, and motivate the patient toward change. Assess substance abuse behavior and give supportive advice about harm reduction, recommend a reduction in hazardous/at- risk consumption patterns, and facilitate referrals for additional specialized treatment with animal caretaker supervisor. Intermediate goal is for the patient to quit and attend outpatient substance abuse treatment. Intervention focus on intermediate goals to allow for more immediate success in the treatment process to keep the patient motivated. Review following with patient: Cannabis use risks: Short-term use: impaired short-term memory, impaired motor coordination, altered judgement, in high doses paranoia and psychosis. Long-term use addiction, diminished life satisfaction and achievement, symptoms of chronic bronchitis, and increased risk of chronic psychosis disorders if predisposition to such disorders. In withdrawal anger, aggression irritability, anxiety and nervousness, decreased appetite or weight loss, restlessness, and sleep difficulties with strange dreams. Hallucinogen use risks: paranoia, psychosis, speech problems, memory loss, weight loss, anxiety, and depression and suicidal thoughts. OUTPATIENT SUBSTANCE ABUSE TREATMENT: Patient referred to outpatient provider and treatment for continued treatment related to substance abuse. - Time Spent With Patient Time Spent With Patient: 15 minutes, met with patient individually. - Pending Discharge Pending Discharge Within 24 Hours: No Pending Discharge Within 48 Hours: No ICD10 Worksheet Patient Problems: Problems Problem Status Onset Cannabis use disorder, severe, dependence Acute Hallucinogen use, unspecified with hallucinogen-induced psychotic disorder, unspecified Acute Schizoaffective disorder, bipolar type Chronic
[2018-08-11] MEDS: NICOTINE POLACRILEX 2 MG GUM B PRN ×2 (10:13→15:13)
--- NOTE | 2018-08-11 12:19 | ASMTCMCOM ---
CM Note CM Note Notes: CC spoke to client briefly today during check-in. Client presents as semi-alert, ok eye contact, affect is more appropriate towards situation than previous days, however, still disorganized. Client suggests that "[I] did not sleep well last night." Additionally, he noted "the medication [Zyprexa] make me feel like there is some one pulling all the muscles in my back apart or like I was being tortured." Per provider, he will contact family in the AM regarding any family meeting, etc. Client denies any feelings of anxiety, depression, S/I-H/I or AVH; however, has no insight towards his mental health needs.* Date Signed: 08/11/2018 12:18 PM Electronically Signed By:Chris Blanco
--- NOTE | 2018-08-11 13:36 | ASMTCMCOM ---
CM Note CM Note Notes: CC contacted [facility] at to schedule poss. family meeting, etc. Spoke to [facility], she noted that 'he called my phone and left a VM noting that 'I don't want anything to do with you,' while also suggesting that he loves me. I have never seen him this angry towards family in any other mental health setting. This is unusually to his personality and past behaviors. [facility] suggests that "client has no one else in his life that could support him, including no friends." [facility], noted that "when I visited yesterday, this is the worst I have ever seen him, this aggressive that concerned about his safety when he discharges." [facility] noted, that he could possibly stay at the rental home ONLY if he complies mental health treatment, medications, as well improved behaviors. According to [facility], the state is going to press charges against the client (only misdemeanor charges only due to his mental health status." She also, noted "I should know more about that later this week, when the officer gets back to me." Date Signed: 08/11/2018 01:36 PM Electronically Signed By:Chris Blanco
[2018-08-11] MEDS: OLANZapine DISINTEGR 10 MG TAB PO SCH (22:23)
--- NOTE | 2018-08-12 06:14 | SOAPPROG ---
SOAP Progress Note Assessment/Plan: Assessment: Schizoaffective Disorder, Bipolar Type. Cannabis Use Disorder, Severe. Hallucinogen Use Disorder. No improvement noted. (see subjective/objective note ). Patient is not safe to discharge at this time as patient continues to exhibit signs of psychosis, and express psychosis symptoms. Patient requires continued inpatient care because of current psychosis, and requires inpatient level of care to stabilize in order to no longer be gravely disabled due to mental illness. Patient exhibits persistent inability to perform essential function due to psychotic condition. Patients support system has inability to manage functional impairment at lower level of care. Patient requires close monitoring (assault precautions, suicide precautions). Behavioral plan in place to support precautions. Patient could benefit from continued inpatient hospitalization for crisis stabilization, safety, and medication evaluation. Plan: 1. Psychotropic medications: After reviewing options, risks, and benefits patient agrees to continue current medications. No other medication changes at this time as more time is needed to determine ongoing tolerability and efficacy. Plan is to continue to observe patient for response and side effects from medications, and ongoing monitoring and evaluation. 2. Review with patient informed consent and recommendations for psychotropic medication treatment listed below 3. Labs: no additional labs at this time 4. Therapy: continue milieu and group therapy 5. Further investigation including gathering information from patients relatives and review of past case records to inform treatment plan. 6. Safety/Wellness plan and follow-up outpatient appointments to be established prior to discharge. Next steps are for patient to meet with caregiver services home to plan a safe discharge plan and establish outpatient services for ongoing treatment. 7. Confer with inpatient treatment team regarding treatment plan. 8. Psychosocial stressors addressed through 9. Legal status: [facility] 10. Consider discharge next week if patient is in stable condition, safe, and has a safe discharge plan. 11. Substance abuse interventions: hallucinogens and THC PSYCHOTROPIC MEDICATION TREATMENT INFORMED CONSENT and RECOMMENDATIONS: Review nature of condition, diagnosis, and prognosis. Review nature and purpose of psychotropic medication treatment. Review type of psychotropic medications being ordered. Review risk and benefits of psychotropic medication treatment. Review probable length of time patient will need to take medications. Review risk and benefits of not undergoing psychotropic medication treatment. Review alternative treatments to psychotropic medications. Review psychotropic medications contraindications, drug-drug interactions, side effects, and importance of reporting any side effects to a psychiatric provider or nurse during inpatient hospitalization, and upon discharge to patients psychiatric outpatient provider, primary care provider, or other health career counselor. Review importance of asking a nurse, psychiatric provider, or primary care provider any questions or problems concerning the psychotropic medications. Verify patient understands the information that has been provided, and understands, accepts, and agrees to psychotropic medications. Review patients safety plan and importance of patient to report to staff while hospitalized if patient is ever a danger to self/others, or unable to care for self, and upon discharge, the importance for patient to contact [facility] or [facility], or go to the nearest emergency room, if patient is ever a danger to self/others, or unable to care for self. Recommend that upon discharge patient establish medication management treatment with a psychiatric provider, establishes routine therapy appointments, and follow-up with primary care provider. Verify patient understands and agrees to these recommendations. 08/12/18 06:14 Subjective: Following up with patient for evaluation of psychosis and safety. Patient reports, "I talked to my mom last night, and we kind of made up. She said I can return home to live with her and my dad." Patient describes getting 8 hours of sleep. Patient reports no side effects from current medications, and agrees to continue current medications. Patient agrees to contact his parents to set-up a family meeting. Objective: Vital Signs Temp Pulse Resp BP Pulse Ox 36.3 C 98 16 136/77 H 94 08/10/18 06:00 08/11/18 06:00 08/11/18 06:00 08/11/18 06:00 08/11/18 06:00 NURSING REPORT: Consulted with nursing for update on patients progress in treatment. Nurses report patient is engaged in treatment, is attending groups, slept 8 hours, expresses the following psychiatric symptoms: moderate anxiety, exhibits the following psychiatric symptoms: anxious; is eating all meals; is agreeable to schedule medications and taking as prescribed with no report of side effects, with no s/s of EPS/akathisia, and denies SI/HI, denies A/V hallucinations, and reports delusions. MD REPORT FROM WEEKEND: Placed on new ISB restrictions on Friday d/t inappropriate behavior with patient. Patient had meltdown on Friday b/ I wouldnt give him AG privileges. TREATMENT TEAM: Discuss with treatment team need to continue precautions and behavioral plan as patient has improved and has been appropriate on unit for the last few days. MSE: The patient is a well-nourished male looking stated chronological age. Attire is appropriate and dress is casual. Grooming status is appropriate. Ambulation is independent. Gait is normal and coordinated. Posture is normal and relaxed. Eye contact is appropriate. Motor activity is appropriate with purposeful, organized, coordinated movements; with no involuntary movements. Attitude is cooperative. Patient appears attentive and relates well to this interviewer. Language production is spontaneous. R/R/V normal. Articulation is clear. Patient reports mood as okay with incongruent and inappropriate expansive affect. Patients thought process is linear and logical. Thought process improved since starting antipsychotic. Patient denies suicidal thoughts , denies homicidal ideation. Patient denies auditory, visual hallucinations. Patient denies delusions. Patient does not appear to be attending to internal stimuli. Patients attention and concentration are poor. Patient is oriented to person, place. Patients insight and judgment are poor. SUBSTANCE ABUSE BRIEF INTERVENTION: Brief intervention regarding the risks of hallucinogens and THC abuse is provided to patient with goal to reduce the risk of harm that could result from the continued use of hallucinogens and THC, with the general aim to investigate the problem, raise awareness of problem, develop a solution with the patient, recommend a specific change or activity, and motivate the patient toward change. Assess substance abuse behavior and give supportive advice about harm reduction, recommend a reduction in hazardous/at- risk consumption patterns, and facilitate referrals for additional specialized treatment with health care analyst. Intermediate goal is for the patient to quit and attend outpatient substance abuse treatment. Intervention focus on intermediate goals to allow for more immediate success in the treatment process to keep the patient motivated. Review following with patient: Cannabis use risks: Short-term use: impaired short-term memory, impaired motor coordination, altered judgement, in high doses paranoia and psychosis. Long-term use addiction, diminished life satisfaction and achievement, symptoms of chronic bronchitis, and increased risk of chronic psychosis disorders if predisposition to such disorders. In withdrawal anger, aggression irritability, anxiety and nervousness, decreased appetite or weight loss, restlessness, and sleep difficulties with strange dreams. Hallucinogen use risks: paranoia, psychosis, speech problems, memory loss, weight loss, anxiety, and depression and suicidal thoughts. OUTPATIENT SUBSTANCE ABUSE TREATMENT: Patient referred to outpatient provider and treatment for continued treatment related to substance abuse. - Time Spent With Patient Time Spent With Patient: 15 minutes, met with patient individually. - Pending Discharge Pending Discharge Within 24 Hours: No Pending Discharge Within 48 Hours: No ICD10 Worksheet Patient Problems: Problems Problem Status Onset Cannabis use disorder, severe, dependence Acute Hallucinogen use, unspecified with hallucinogen-induced psychotic disorder, unspecified Acute Schizoaffective disorder, bipolar type Chronic
[2018-08-12] MEDS: LORazepam 1 MG TAB PO PRN (09:55)
[2018-08-12] MEDS ORDERED: OLANZapine DISINTEGR 10 MG TAB PO ONE (10:47)
[2018-08-12] MEDS ORDERED: OLANZapine DISINTEGR 10 MG TAB PO SCH (10:48)
[2018-08-13] MEDS ORDERED: OLANZapine DISINTEGR 10 MG TAB PO SCH (06:27)
--- NOTE | 2018-08-13 08:29 | SOAPPROG ---
SOAP Progress Note Assessment/Plan: Assessment: Schizoaffective Disorder, Bipolar Type. Cannabis Use Disorder, Severe. Hallucinogen Use Disorder. Slight improvement noted. (see subjective/objective note). Patient is not safe to discharge at this time as patient continues to exhibit signs of psychosis, and express psychosis symptoms. Patient requires continued inpatient care because of current psychosis, and requires inpatient level of care to stabilize in order to no longer be gravely disabled due to mental illness. Patient exhibits persistent inability to perform essential function due to psychotic condition. Patients support system has inability to manage functional impairment at lower level of care. Patient requires close monitoring (assault precautions, suicide precautions). Behavioral plan in place to support precautions. Patient could benefit from continued inpatient hospitalization for crisis stabilization, safety, and medication evaluation. Plan: 1. Psychotropic medications: After reviewing options, risks, and benefits patient agrees to continue current medications, and agrees to increase Zyprexa Zydis to 20 mg po QHS. No other medication changes at this time as more time is needed to determine ongoing tolerability and efficacy. Plan is to continue to observe patient for response and side effects from medications, and ongoing monitoring and evaluation. 2. Review with patient informed consent and recommendations for psychotropic medication treatment listed below 3. Labs: no additional labs at this time 4. Therapy: continue milieu and group therapy 5. Further investigation including gathering information from patients relatives and review of past case records to inform treatment plan. 6. Safety/Wellness plan and follow-up outpatient appointments to be established prior to discharge. Next steps are for patient to meet with assistant child care teacher to plan a safe discharge plan and establish outpatient services for ongoing treatment. 7. Confer with inpatient treatment team regarding treatment plan. 8. Psychosocial stressors addressed through 9. Legal status: [facility] 10. Consider discharge next week if patient is in stable condition, safe, and has a safe discharge plan. 11. Substance abuse interventions: hallucinogens and THC PSYCHOTROPIC MEDICATION TREATMENT INFORMED CONSENT and RECOMMENDATIONS: Review nature of condition, diagnosis, and prognosis. Review nature and purpose of psychotropic medication treatment. Review type of psychotropic medications being ordered. Review risk and benefits of psychotropic medication treatment. Review probable length of time patient will need to take medications. Review risk and benefits of not undergoing psychotropic medication treatment. Review alternative treatments to psychotropic medications. Review psychotropic medications contraindications, drug-drug interactions, side effects, and importance of reporting any side effects to a psychiatric provider or nurse during inpatient hospitalization, and upon discharge to patients psychiatric outpatient provider, primary care provider, or other health primary care physician. Review importance of asking a nurse, psychiatric provider, or primary care provider any questions or problems concerning the psychotropic medications. Verify patient understands the information that has been provided, and understands, accepts, and agrees to psychotropic medications. Review patients safety plan and importance of patient to report to staff while hospitalized if patient is ever a danger to self/others, or unable to care for self, and upon discharge, the importance for patient to contact [facility] or [facility], or go to the nearest emergency room, if patient is ever a danger to self/others, or unable to care for self. Recommend that upon discharge patient establish medication management treatment with a psychiatric provider, establishes routine therapy appointments, and follow-up with primary care provider. Verify patient understands and agrees to these recommendations. 08/13/18 08:29 Subjective: Following up with patient for evaluation of psychosis and safety. Patient reports, "Doing good, feeling better." Patient describes getting 8 hours of sleep. Patient reports no side effects from current medications, and agrees to continue current medications. Patient agrees to increase Zyprexa Zydis to 20 mg po QHS. Patient agrees to follow-up on outpatient basis for ongoing treatment, and agrees to continue medications after discharge. Objective: Vital Signs Temp Pulse Resp BP Pulse Ox 36.4 C 83 14 109/82 H 95 08/13/18 06:00 08/13/18 06:00 08/13/18 06:00 08/13/18 06:00 08/13/18 06:00 NURSING REPORT: Consulted with nursing for update on patients progress in treatment. Nurses report patient is engaged in treatment, is attending groups, slept 8 hours, expresses the following psychiatric symptoms: moderate anxiety, exhibits the following psychiatric symptoms: anxious, disorganized, at times nonsensical, illogical; is eating all meals; is agreeable to schedule medications and taking as prescribed with no report of side effects, with no s/ s of EPS/akathisia, and denies SI/HI, denies A/V hallucinations, and reports delusions. COGNITIVE FUNCTION: Retention / Recall: repeat back these numbers: 5 1 5 0 3 / 9 6 8 3 6 4 2 - Without difficulty Abstractions: How is an airplane similar to a bird? "The wing span. The way that the rotors curve the air; birds use their bones and planes use their hinges." Memory: Remember these 3 items, ask to repeat back: Pin, Car, Duck. Without difficulty. Judgement: If you were in a restaurant and heard a fire alarm go off, what would you do? "Do whatever I could to get away from the situation." If you found a stamped, sealed envelope on the side walk, what would you do with it? "I would open it up first and if there wasn't money or something, I would go ahead and mail it. Because I know there are a lot of rich people on [facility]." Orientation: Why are you here at the hospital? "I had a schizophrenic break because I was freaking out because my sister wouldn't get off her phone, and I was off my medications." Calculations: 3 x 7 Count backwards by 3 or 7 starting from 100 - Without difficulty. 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 - Without difficulty. MSE: The patient is a well-nourished male looking stated chronological age. Attire is appropriate and dress is casual. Grooming status is appropriate. Ambulation is independent. Gait is normal and coordinated. Posture is normal and relaxed. Eye contact is appropriate. Motor activity is appropriate with purposeful, organized, coordinated movements; with no involuntary movements. Attitude is cooperative. Patient appears distracted and does not relate well to this interviewer. Language production is spontaneous. R/R/V normal. Articulation is clear. Patient reports mood as okay with congruent affect. Patients thought process is fairly linear and fairly logical, some thought blocking noted. Thought process improved since starting antipsychotic. Patient denies suicidal thoughts, denies homicidal ideation. Patient denies auditory, visual hallucinations. Patient denies delusions. Patient does not appear to be attending to internal stimuli. Patients attention and concentration are poor. Patient is oriented to person, place. Patients insight and judgment are poor. SUBSTANCE ABUSE BRIEF INTERVENTION: Brief intervention regarding the risks of hallucinogens and THC abuse is provided to patient with goal to reduce the risk of harm that could result from the continued use of hallucinogens and THC, with the general aim to investigate the problem, raise awareness of problem, develop a solution with the patient, recommend a specific change or activity, and motivate the patient toward change. Assess substance abuse behavior and give supportive advice about harm reduction, recommend a reduction in hazardous/at- risk consumption patterns, and facilitate referrals for additional specialized treatment with assistant child care teacher. Intermediate goal is for the patient to quit and attend outpatient substance abuse treatment. Intervention focus on intermediate goals to allow for more immediate success in the treatment process to keep the patient motivated. Review following with patient: Cannabis use risks: Short-term use: impaired short-term memory, impaired motor coordination, altered judgement, in high doses paranoia and psychosis. Long-term use addiction, diminished life satisfaction and achievement, symptoms of chronic bronchitis, and increased risk of chronic psychosis disorders if predisposition to such disorders. In withdrawal anger, aggression irritability, anxiety and nervousness, decreased appetite or weight loss, restlessness, and sleep difficulties with strange dreams. Hallucinogen use risks: paranoia, psychosis, speech problems, memory loss, weight loss, anxiety, and depression and suicidal thoughts. OUTPATIENT SUBSTANCE ABUSE TREATMENT: Patient referred to outpatient provider and treatment for continued treatment related to substance abuse. - Time Spent With Patient Time Spent With Patient: 15 minutes, met with patient individually. - Pending Discharge Pending Discharge Within 24 Hours: No Pending Discharge Within 48 Hours: No ICD10 Worksheet Patient Problems: Problems Problem Status Onset Cannabis use disorder, severe, dependence Acute Hallucinogen use, unspecified with hallucinogen-induced psychotic disorder, unspecified Acute Schizoaffective disorder, bipolar type Chronic
--- NOTE | 2018-08-13 14:40 | ASMTBHDC ---
Notes Note: Notes: Pt. reports being confused about when he is discharging. Pt. stated he is "fine going to the [facility]". Pt. reports "doing great". Pt. stated "feel like have two other parallels to me" adding he can "see through them". Pt. stated he slept " a lot, lot better than usual". Pt. stated he "can actually dream now" adding he is having "red ball dreams" which are dreams you can act in. Pt. stated 10 mg of Zyprexa is "working well". Pt. stated 10mg is"stopping point for trying". Pt. stated the medication is a "good helper for my schizophrenia". Pt. stated he plans to continue taking his medication upon discharge. Pt. stated his concern about discharge is "not being able to leave". Pt. denied SI, HI, AVH and paranoia. Pt. stated he has not finished his safety plan, but will work on it. Pt. stated he would like to go to the [facility] or the [facility]. CC asked if pt. has complete the coordinated entry to the [facility], pt stated no, then stated he would rather not do the coordinated entry. Pt. presents as alert, anxious to discharge, staring eye contact, slightly unkempt, and cooperative. Staff report pt. sleeping 7 hours and being medication compliant CC reached out to [facility], who stated pt. needs to attend his appointment with Diana Silva on 08/21 @ 10am, and she will set the pt. up with a prescriber. Per provider, pt. to discharge early next week Date Signed: 08/13/2018 02:39 PM Electronically Signed By:Maria C Minor
[2018-08-13] MEDS: OLANZapine DISINTEGR 10 MG TAB PO SCH (20:32)
--- NOTE | 2018-08-14 09:19 | SOAPPROG ---
SOAP Progress Note Assessment/Plan: Assessment: Schizoaffective Disorder, Bipolar Type. Cannabis Use Disorder, Severe. Hallucinogen Use Disorder. Slight improvement noted. (see subjective/objective note). Patient is not safe to discharge at this time as patient continues to exhibit signs of psychosis, and express psychosis symptoms. Patient requires continued inpatient care because of current psychosis, and requires inpatient level of care to stabilize in order to no longer be gravely disabled due to mental illness. Patient exhibits persistent inability to perform essential function due to psychotic condition. Patients support system has inability to manage functional impairment at lower level of care. Due to patient's history of medication non-adherence, drug use, and recent disorder with family that led to this hospitalization, patient could benefit from well-established outpatient service discharge plan and supportive living environment arrangements prior to discharge. Patient requires close monitoring (assault precautions, suicide precautions). Behavioral plan in place to support precautions. Patient could benefit from continued inpatient hospitalization for crisis stabilization, safety, and medication evaluation. Plan: 1. Psychotropic medications: After reviewing options, risks, and benefits patient agrees to continue current medications. No other medication changes at this time as more time is needed to determine ongoing tolerability and efficacy. Plan is to continue to observe patient for response and side effects from medications, and ongoing monitoring and evaluation. 2. Review with patient informed consent and recommendations for psychotropic medication treatment listed below 3. Labs: no additional labs at this time 4. Therapy: continue milieu and group therapy 5. Further investigation including gathering information from patients relatives and review of past case records to inform treatment plan. 6. Safety/Wellness plan and follow-up outpatient appointments to be established prior to discharge. Next steps are for patient to meet with career representative to plan a safe discharge plan and establish outpatient services for ongoing treatment. 7. Confer with inpatient treatment team regarding treatment plan. 8. Psychosocial stressors addressed through 9. Legal status: [facility] 10. Consider discharge next week if patient is in stable condition, safe, and has a safe discharge plan. 11. Substance abuse interventions: hallucinogens and THC PSYCHOTROPIC MEDICATION TREATMENT INFORMED CONSENT and RECOMMENDATIONS: Review nature of condition, diagnosis, and prognosis. Review nature and purpose of psychotropic medication treatment. Review type of psychotropic medications being ordered. Review risk and benefits of psychotropic medication treatment. Review probable length of time patient will need to take medications. Review risk and benefits of not undergoing psychotropic medication treatment. Review alternative treatments to psychotropic medications. Review psychotropic medications contraindications, drug-drug interactions, side effects, and importance of reporting any side effects to a psychiatric provider or nurse during inpatient hospitalization, and upon discharge to patients psychiatric outpatient provider, primary care provider, or other health healthcare representative. Review importance of asking a nurse, psychiatric provider, or primary care provider any questions or problems concerning the psychotropic medications. Verify patient understands the information that has been provided, and understands, accepts, and agrees to psychotropic medications. Review patients safety plan and importance of patient to report to staff while hospitalized if patient is ever a danger to self/others, or unable to care for self, and upon discharge, the importance for patient to contact [facility] or [facility], or go to the nearest emergency room, if patient is ever a danger to self/others, or unable to care for self. Recommend that upon discharge patient establish medication management treatment with a psychiatric provider, establishes routine therapy appointments, and follow-up with primary care provider. Verify patient understands and agrees to these recommendations. 08/14/18 09:16 Subjective: Following up with patient for evaluation of psychosis and safety. Patient reports, "Doing good, sleeping good last night." Patient describes getting 8 hours of sleep. Patient reports no side effects from current medications, and agrees to continue current medications. Objective: Vital Signs Temp Pulse Resp BP Pulse Ox 36.4 C 74 18 118/80 98 08/14/18 06:00 08/14/18 06:00 08/14/18 06:00 08/14/18 06:00 08/14/18 06:00 NURSING REPORT: Consulted with nursing for update on patients progress in treatment. Nurses report patient is engaged in treatment, is attending groups, slept 8 hours, expresses the following psychiatric symptoms: moderate anxiety, exhibits the following psychiatric symptoms: anxious, disorganized, at times nonsensical; is eating all meals; is agreeable to schedule medications and taking as prescribed with no report of side effects, with no s/s of EPS/ akathisia, and denies SI/HI, denies A/V hallucinations, and denies delusions. MSE: The patient is a well-nourished male looking stated chronological age. Attire is appropriate and dress is casual. Grooming status is appropriate. Ambulation is independent. Gait is normal and coordinated. Posture is normal and relaxed. Eye contact is appropriate. Motor activity is appropriate with purposeful, organized, coordinated movements; with no involuntary movements. Attitude is cooperative. Patient appears distracted and does not relate well to this interviewer. Language production is spontaneous. R/R/V normal. Articulation is clear. Patient reports mood as okay with congruent affect. Patients thought process is fairly linear and fairly logical, some thought blocking noted. Thought process improved since starting antipsychotic. Patient denies suicidal thoughts, denies homicidal ideation. Patient denies auditory, visual hallucinations. Patient denies delusions. Patient does not appear to be attending to internal stimuli. Patients attention and concentration are poor. Patient is oriented to person, place. Patients insight and judgment are poor. TREATMENT TEAM/CARE COORDINATION UPDATE: Patient agrees to discharge to [facility] if available at time of discharge. cancer program coordinator currently working to set up outpatient services. SUBSTANCE ABUSE BRIEF INTERVENTION: Brief intervention regarding the risks of hallucinogens and THC abuse is provided to patient with goal to reduce the risk of harm that could result from the continued use of hallucinogens and THC, with the general aim to investigate the problem, raise awareness of problem, develop a solution with the patient, recommend a specific change or activity, and motivate the patient toward change. Assess substance abuse behavior and give supportive advice about harm reduction, recommend a reduction in hazardous/at- risk consumption patterns, and facilitate referrals for additional specialized treatment with home health care social worker. Intermediate goal is for the patient to quit and attend outpatient substance abuse treatment. Intervention focus on intermediate goals to allow for more immediate success in the treatment process to keep the patient motivated. Review following with patient: Cannabis use risks: Short-term use: impaired short-term memory, impaired motor coordination, altered judgement, in high doses paranoia and psychosis. Long-term use addiction, diminished life satisfaction and achievement, symptoms of chronic bronchitis, and increased risk of chronic psychosis disorders if predisposition to such disorders. In withdrawal anger, aggression irritability, anxiety and nervousness, decreased appetite or weight loss, restlessness, and sleep difficulties with strange dreams. Hallucinogen use risks: paranoia, psychosis, speech problems, memory loss, weight loss, anxiety, and depression and suicidal thoughts. OUTPATIENT SUBSTANCE ABUSE TREATMENT: Patient referred to outpatient provider and treatment for continued treatment related to substance abuse. - Time Spent With Patient Time Spent With Patient: 15 minutes, met with patient individually. - Pending Discharge Pending Discharge Within 24 Hours: No Pending Discharge Within 48 Hours: No ICD10 Worksheet Patient Problems: Problems Problem Status Onset Cannabis use disorder, severe, dependence Acute Hallucinogen use, unspecified with hallucinogen-induced psychotic disorder, unspecified Acute Schizoaffective disorder, bipolar type Chronic
--- NOTE | 2018-08-14 11:21 | ASMTCMCOM ---
CM Note CM Note Notes: CC checked in with ct. who initially said: "I could be doing better, feeling antsy". Ct. then reported that he is doing fine. Ct. was somewhat disorganized and got distracted every time someone spoke in the jauregui. Ct. reported that [facility] he [facility]. Current plan is to discarge ct. on 08/17/18. Date Signed: 08/14/2018 11:20 AM Electronically Signed By:Yeny Reeder
[2018-08-14] MEDS: OLANZapine DISINTEGR 10 MG TAB PO SCH (18:33)
--- NOTE | 2018-08-15 09:13 | ASMTBHDC ---
Notes Note: Notes: CC was able to confirm all necessary out-patient appts: [facility] [address] [place] [address] Next Appointment with Diana Silva - August 21 (08/21/18) at 10:00am Diana will be able to help set patient up with provider at this appointment [facility] [address] [place] [address] Must do Coordinated Entry at [facility] prior to entering the [facility] Handout Provided [facility] [address] [place] [address] Daytime Drop-In Center Open every day 12:30pm 5:00pm to anyone ages 24 and under Free Drop-In services include: Meals, Internet Access, Clothing & Hygiene Items, Showers, Laundry, Trusted Mailing Address, Employment Assistance, Access to Medical Care, Legal Help, Education Programs, Housing Assistance Activities, Groups, & More! [facility] [address] [place] [id number] [facility] [address] [place] [id number] [facility] opens at 5:00pm each evening Date Signed: 08/15/2018 09:13 AM Electronically Signed By:Chris Blanco
--- NOTE | 2018-08-15 13:13 | SOAPPROG ---
SOAP Progress Note Assessment/Plan: Assessment: 22yo cm w/hx SZP complicated by subst use 08/15/18 14:00 per staff, slept 7hr. is on jauregui restrictions able to discuss ppt to admission but with no insight into need for meds or reason for hospitalization. states his parents want him to take meds and attend groups, and take meds after d/c so he can return to apt. reports they would see his compliance by looking at his pill bottle and "seeing missing pills". Requesting off unit privs. declined pt reports he uses THC when anxious "I want to but I don't need to" take meds. "I would like to get rediagnosed as ADHD" mse: cooperative, overall engaging readily interactive, nml vol and tone, talkative but not pressured, in behav control. good e/c. no abn invol mvmts noted. did not appear RIS but staff report he talks to self at times. denied ah/ vh. denied si/hi. seems with disinhibited thoughts, occasionally tangential not consistently logical with reasoning. concrete, seems somewhat immature and impulsive. insight/jdgmt- both poor. PLAN: cont zyprexa 10mg hs. refuses incr to 15 or 20 although could benefit. Ideally would be on WILLETT since with hi risk n/c cont on STC Objective: Vital Signs Temp Pulse Resp BP Pulse Ox 36.4 C 105 H 16 125/81 H 96 08/15/18 06:00 08/15/18 06:00 08/15/18 06:00 08/15/18 06:00 08/15/18 06:00 - Time Spent With Patient Time Spent With Patient: 15min - Pending Discharge Pending Discharge Within 24 Hours: No Pending Discharge Within 48 Hours: No ICD10 Worksheet Patient Problems: Problems Problem Status Onset Cannabis use disorder, severe, dependence Acute Hallucinogen use, unspecified with hallucinogen-induced psychotic disorder, unspecified Acute Schizoaffective disorder, bipolar type Chronic
--- NOTE | 2018-08-15 13:59 | ASMTCMCOM ---
CM Note CM Note Notes: CC speaks to client briefly during check in. Client appears to be well groomed, good eye contact, calmer, affect is appropriate towards situation. Client denies any feelings of S/I-H/I, anxiety, depression and/or AVH. Client remarks his mood as "doing well," while suggesting he is discharging on Friday to the care of his parents with the understanding that he could not: smoke marijuana, break sister's phone, stay on medications as well as go [facility] ([facility]). Date Signed: 08/15/2018 01:58 PM Electronically Signed By:Chris Blanco
[2018-08-15] MEDS: OLANZapine DISINTEGR 10 MG TAB PO SCH (21:21)
[2018-08-16 06:33] VITALS: BP 109/69
[2018-08-16] MEDS: LORazepam 1 MG TAB PO PRN (11:36)
--- NOTE | 2018-08-16 15:33 | ASMTCMCOM ---
CM Note CM Note Notes: CC spoke with client's parents who are both willing to attend client's treatment team meeting tomorrow regarding future medications and compliance; they noted that they "should be here around 10am or 10:15am.* CC will relay this information in the pass along. Also spoke to hamlet Stahl, who noted that he thought is would be a good idea for client's parents to be present as well. Date Signed: 08/16/2018 03:32 PM Electronically Signed By:Chris Blanco
[2018-08-16] MEDS: OLANZapine DISINTEGR 10 MG TAB PO PRN ×2 (16:49→17:17)
--- NOTE | 2018-08-16 17:27 | SOAPPROG ---
SOAP Progress Note Assessment/Plan: Assessment: Patient reveals presence of auditory hallucinations which have not been recently reported, and continues with disorganized thinking and bizarre, intrusive behaviors. Although agreeable to medication adherence on the unit, he is high risk for noncompliance upon discharge without an WILLETT, as well as being high risk for reoccurring substance use with cannabis especially. Plan: Continue Zyprexa 10 mg PO qhs at bedtime and start Abilify 2 mg PO now for ongoing psychosis and disorganization of thinking. Educated regarding risk of side effects, alternative medications, and benefits of treatment including possibility of introducing WILLETT prior to discharge. Educate regarding need for ongoing evaluation of mental state considering the presence of his auditory hallucinations and importance of discussing with nursing staff if AH become distressing or command in nature. -Encourage patient to consider impulsive and inappropriate behaviors before acting upon them and finding alternative and appropriate means to get positive attention from peers. -Discuss option of coordinating family meeting prior to planned patient discharge in AM along with treatment team to emphasize safe discharge planning and expectations for patient's ongoing outpatient care. *Note entered by Noah Rich RN- NURSE AIDE Student in cooperation with Linda Abdi MD * ADDENDUM: I was present throughout interview, supervising NURSE AIDE student, and actively engaged with patient interview, assessment and plan. Discussed case with ro Perez , weekend staff, and also with Favio Stanton NURSE AIDE. Discussed options for meds, risks/benefits. Pt agreed to initiate an WILLETT so he didn't have to worry about taking medications daily. Agreed to start Abilify 2mg. Plan uptitrate, monitor for effect, and then convert to Abilify Maintenna. Pt reported audibly hearing repetitive voices, recently really "hearing" what they say, many affirmations. In past, states he would hear +AH but not able to make out what was being said, now feels he can. and these are "repetitive affirmations". also hears a second voice, which is a father figure, encapsulating the 1st voice. Then pt got on ground in yoga child pose position and talked of meditation and relief of back pressure, being a "hermaic traveller" and bubbles connecting as his Ra. ADDENDUM 08/16/18 18:40 Pt told RN he had no recollection of agreement to take a different psychotropic med upon her offering of Abilify to pt. . After being informed of his refusal, I addressed this with him. He then did not admit to having no recollection of the interview and long discussion of psychotropics, but rather alleges his understanding was to start the new med, incl WILLETT, after d/c which he'd prefer to do . Does not want increase in HS zyprexa. Also states he just took an extra as prn. RN gave him Zyprexa 10mg for his hypomanic behaviors which were escalating on the unit. Subjective: S: Patient states he's feeling "tired and achy. I've been having dizzy spells with the voices I have sometimes". The patient reveals that he has been hearing "repetitive voices that tell him 'you can do this. Just do it'". He states that he just started hearing them recently although did not note a clear timeframe for this, however since being hospitalized he shares that they've gotten better and are less intense although he does not find them distressing. As he puts it "I hear one person and another person encapsulating the other voices. A father figure. That bubble is connected to another bubble. Taurus is my higher being". When asked about previously having racing thoughts he is unable to clearly confirm yes or no, however he feels that since being hospitalized he is finding "greater clarity". When asked about the episode this morning when he licked yogurt off the floor he states he was just trying to get attention and "be a weird dog". When clarifying if this was a literal interpretation given he licked the floor he states "yes. I like the positive feedback I get when people laugh". While inquiring further about his episode of vomiting later in the morning he responds that it was from eating "oily eggs " and denies current nausea or vomiting at this time. After discussing the availability of outpatient groups offered through [facility], he shares his enthusiasm and states he's looking forward to attending [facility] [employer] and states "I think I'd be important to learn this". He also states he is open to taking alternative antipsychotics including Abilify and agrees to a trail later today with the possible introduction of a long-acting injectable prior to discharge. Objective: Per staff, pt slept 8 hrs, licked yogurt off floor this AM. staff note pt overall more calm but continues with illogical thought processes at times. Vital Signs Temp Pulse Resp BP Pulse Ox 36.4 C 84 14 109/69 96 08/16/18 06:00 08/16/18 06:00 08/16/18 06:00 08/16/18 06:00 08/16/18 06:00 O: Patient presents as clean but with unkempt hair although is now presenting as clean-shaven. He provides good eye contact, looks stated age, and interacts cooperatively with this examiner. He does not display any involuntary, slowed, or overly restless movements; although he is intrusive on the unit and overly engages with random patients. He also displays odd behavior such as licking food off the floor and did have emesis x1. His mood is "quite good" and affect is cheerful but odd. His TP is quite disorganized and tangential whereas his TC reveals alevism grandiosity, discussion about his auditory hallucinations, and his approach towards interpersonal relationships including his family but primarily his sister. He denies SI, HI, admits to auditory hallucinations which are positive in nature though denies them being command, and reveals bizarre delusions about his spiritual role and practices. He is alert and oriented x4, has poor insight and judgment, poor to fair attention and concentration, intact recent and remote memory although is confused upon specifics of medication management, and good sleep at 8 hours with good appetite. - Time Spent With Patient Time Spent With Patient: 20 - Pending Discharge Pending Discharge Within 24 Hours: No Pending Discharge Within 48 Hours: No ICD10 Worksheet Patient Problems: Problems Problem Status Onset Cannabis use disorder, severe, dependence Acute Hallucinogen use, unspecified with hallucinogen-induced psychotic disorder, unspecified Acute Schizoaffective disorder, bipolar type Chronic
[2018-08-16] MEDS: ARIPiprazole 2 MG TAB PO SCH (18:23)
[2018-08-16] MEDS: OLANZapine DISINTEGR 10 MG TAB PO SCH (20:50)
[2018-08-17] MEDS: ARIPiprazole 2 MG TAB PO SCH (08:41)
--- NOTE | 2018-08-17 11:09 | ASMTBHDC ---
Notes Note: Notes: Pt. reports he is "doing well". Pt. stated he slept "not the best, pretty horrible sleep". Pt. stated he is unsure if he is getting the right amount of food, as he isn't always clear about how hungry he actually is. Pt. stated his only issues with the medications is "just taking in on time". Pt. stated he is attending groups. Pt. stated his only issue on the unit currently is not getting along with a peer pt. who is "treating all of the patients like shit". Pt. reports he is avoiding this peer pt and that is helping. Pt. denied SI, HI, AVH and paranoia. Pt. attended treatment team planning with both of his parents. Pt. to call [facility] prior to discharge. Pt. presents as alert, excited to d/c, good eye contact, somewhat groomed, polite and cooperative. Staff report pt. sleeping 9 hours and refusing his Abilify last night. Pt. stated refused due to some confusion. Pt. stated he "would love that [WILLETT]". Pt. follow up appointments as follows: [facility] [address] [place] [address] Next Appointment with Diana Silva - August 21 (08/21/18) at 09:45am Next Medication Appt: FridayAugust 17 (08/17/18) at 11am with Psychiatrist, Dr. Bourgeois (right after his therapist appt). Date Signed: 08/17/2018 11:09 AM Electronically Signed By:aMria C Minor
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
== END 2018-08-17 12:04 | disposition home or self-care (01) | DRG 885 ==
LOC: EDUNIT# → BBEH 23:38
PROVIDERS: ADMIT Psychiatry & Neurology Psychiatry; ATTEND Psychiatry & Neurology Psychiatry
DX: F25.0 Schizoaffective disorder, bipolar type (principal); F12.959 Cannabis use, unspecified with psychotic disorder, unspecified; F16.959 Hallucinogen use, unspecified with hallucinogen-induced psychotic disorder, unspecified; J45.909 Unspecified asthma, uncomplicated; S62.145A Nondisplaced fracture of body of hamate [unciform] bone, left wrist, initial encounter for closed fracture; W22.09XA Striking against other stationary object, initial encounter; Y93.89 Activity, other specified; Y92.9 Unspecified place or not applicable; R30.0 Dysuria; Z91.5 Personal history of self-harm; Z65.3 Problems related to other legal circumstances
CPT/HCPCS: 80305; 86694-90; 86705-90; G0472; G0480

== ENCOUNTER 2018-08-20 01:12 | Emergency (ER) | payer MEDICAID ==
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
[2018-08-20] MEDS ORDERED: PROPOFOL 200 MG/20 ML VIAL IVP ONE (02:25)
[2018-08-20] MEDS ORDERED: NS 1,000 ML IV ONE (02:37)
[2018-08-20 02:41] LABS: PLATELET COUNT 246 10^3/uL (150-400)
[2018-08-20] MEDS ORDERED: OLANZapine DISINTEGR 10 MG TAB ONE (03:20)
[2018-08-20] MEDS ORDERED: OLANZapine DISINTEGR 10 MG TAB PO ONE (03:20)
--- NOTE | 2018-08-20 11:55 | ASMTTCLDSP ---
TLC Discharge Disposition Disposition: Answers: Discharge If Answers: Yes DISCHARGED: Patient/family given suicide hotline info & SAMHSA brochure? Disposition Notes: Notes: Pt stated commitment or ability to keep self safe, denied thoughts of self harm or harm to others. Pt expressed a desire to f/u with his scheduled appointment with [facility] therapist Diana Silva tomorrow at 9:[address] Anish Bourgeois at 11:00 a.m. Pt was given local hotline information and SAMHSA brochure After an Attempt and encouraged to follow up with [facility] providers. Discharge Concerns/Recommendations: Notes: In consultation with [facility] ED physician, Javier Carbajal MD, Dr. Carbajal concurred that pt does not appear to meet 27-65 criteria requiring psychiatric hospitalization as pt does not appear to be an imminent risk of harm to self/others/gravely disabled due to a mental illness condition. Was patient given the Answers: Not applicable Inpatient Behavioral Health Prohibited Belongings List while in the ED? Date Signed: 08/20/2018 11:55 AM Electronically Signed By:Terrence Barry
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
[2018-08-20 11:59] VITALS: BP 125/78
== END 2018-08-20 12:00 | disposition home or self-care (01) ==
LOC: EEVIPCON 01:12
PROC: 0RSMXZZ Reposition Left Elbow Joint, External Approach (ICD-10-PCS; principal; 2018-08-20)
DX: S53.105A Unspecified dislocation of left ulnohumeral joint, initial encounter (principal); S42.402A Unspecified fracture of lower end of left humerus, initial encounter for closed fracture; F20.89 Other schizophrenia
CPT/HCPCS: 80305; G0480; J2704

== ENCOUNTER 2018-08-28 18:59 | Emergency (ER) | payer MEDICAID ==
[2018-08-28 20:06] LABS: PLATELET COUNT 270 10^3/uL (150-400)
[2018-08-28] MEDS ORDERED: AZITHROMYCIN 250 MG TAB PO ONE (20:08)
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
[2018-08-28] MEDS ORDERED: OLANZapine DISINTEGR 10 MG TAB PO ONE (20:25)
--- NOTE | 2018-08-29 00:28 | ASMTTLCEVL ---
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 complete BDI and BSS do to swirling visuals hallucinations and feeling tired. In consultation with [facility] ED physician, Cosmo Minor MD an aquatic physiotherapist psychiatrist Manolo Holley MD concurred that pt does not appear to meet 27-65 criteria requiring psychiatric hospitalization as pt does not appear to be an imminent risk of harm to self, others, or gravely disabled due to a mental illness condition. Pt will follow up with Outpt providers, and parents will come to [facility] from [facility] to pick him up. [facility] hold was lifted. Evaluation End Date and 08/29/2018 12:30 AM Time (HH:LOLI): Date Signed: 08/29/2018 12:27 AM Electronically Signed By:Javier Omalley
--- NOTE | 2018-08-29 00:31 | ASMTTCLDSP ---
TLC Discharge Disposition Disposition: Answers: Discharge Disposition Notes: Notes: In consultation with [facility] ED physician, Cosmo Minor MD an call center analyst psychiatrist Manolo Holley MD concurred that pt does not appear to meet 27-65 criteria requiring psychiatric hospitalization as pt does not appear to be an imminent risk of harm to self, others, or gravely disabled due to a mental illness condition. Discharge Concerns/Recommendations: Notes: Pt has a hx of being non-med complaint and reportedly told his mom he just said he was interested in psyc meds to get out of inpt. Pt will follow up with Outpt providers, and parents will come to [facility] from [facility] to pick him up. [facility] hold was lifted.[facility] was notified pt was in ED and concerns about his non- med complaince and reported that the PT was interested in seeking a different medication other than zyprexa. Was patient given the Answers: Not applicable Inpatient Behavioral Health Prohibited Belongings List while in the ED? Date Signed: 08/29/2018 12:30 AM Electronically Signed By:Javier Omalley
[2018-08-29 01:10] VITALS: BP 132/78
[2018-08-31 11:25] LABS: GC AMPLIFICATION GENPROBE NEGATIVE (NEGATIVE)
== END 2018-08-29 01:07 | disposition home or self-care (01) ==
PROC: GZ11ZZZ Psychological Tests, Personality and Behavioral (ICD-10-PCS; principal; 2018-08-28)
DX: F20.9 Schizophrenia, unspecified (principal)
CPT/HCPCS: 80305; G0480; J0696